=== PATIENT | male | born 1955 | race Hispanic/Latino ===

== ENCOUNTER → 2017-12-23 | Day surgery (SDC) | payer OTHER ==
[~2017-12-23] MED LIST: CARAFATE1 GM PO; CITALOPRAM HBR20 MG PO; FENTANYL CITRATE/PF 100MCG/2 ML INJ ONE; HYOSCYAMINE SULFATE 0.5 MG/ML AMP ONE; LISINOPRIL20 MG PO; METFORMIN HCL500 MG PO; MIDAZOLAM HCL 2 MG/2 ML VIAL ONE; PANTOPRAZOLE SO40 MG PO; PROPOFOL IV EMULSION 10 MG/ML 50 ML VIAL ONE; TRICOR145 MG PO; VITAMIN D PO
[2017-12-23 10:45] VITALS: BP 115/72
--- NOTE | 2017-12-23 11:06 | Operative Report ---
DATE OF PROCEDURE: December 23, 2017 REFERRING PHYSICIAN: Dr. Memo Schwartz PROCEDURE PERFORMED: Colonoscopy and polypectomy. INDICATIONS FOR PROCEDURE: Personal history of colon polyps and surveillance colonoscopy. MEDICATION: Patient was done under MAC. Please see anesthesiologist's note. PROCEDURE: With the patient in the left lateral decubitus position, the flexible fiberoptic Olympus colonoscope was inserted into the rectum with ease and advanced all the way to the cecum. The scope was then withdrawn slowly. Mucosa overlying the cecum, ascending colon, transverse colon, descending colon appeared to be within normal limits. Diverticular disease was noted to involve the distal descending and the sigmoid colon. One polyp was snared and 1 polyp was hot biopsied from the sigmoid colon. There was some patchy minimal nodularity noted in the distal rectum that was biopsied. The scope was then retroflexed into the distal rectum and small internal hemorrhoids were noted, none of which was actively bleeding. The scope was then straightened out. It was subsequently withdrawn. Patient tolerated the procedure well. IMPRESSION 1. Diverticulosis. 2. Sigmoid colon polyps times 2, one snared and one hot biopsied. 3. Patchy nodularity distal rectum, biopsied. 4. Internal hemorrhoids, none actively bleeding. PLAN: Follow up histology. Initiate high-fiber and low-fat diet. Initiate high-fiber supplement. Patient might benefit from a followup colonoscopy in 3 years. Job#: [id number] RI cc:MEMO SCHWARTZ MD
== END | disposition home or self-care (01) ==
LOC: OR 06:30
PROVIDERS: ATTEND Internal Medicine Gastroenterology
DX: Z12.11 Encounter for screening for malignant neoplasm of colon (principal); Z86.010 Personal history of colon polyps; B96.81 Helicobacter pylori [H. pylori] as the cause of diseases classified elsewhere; K29.70 Gastritis, unspecified, without bleeding; Z68.32 Body mass index [BMI] 32.0-32.9, adult; I10 Essential (primary) hypertension; K21.9 Gastro-esophageal reflux disease without esophagitis; Z83.3 Family history of diabetes mellitus; Z82.49 Family history of ischemic heart disease and other diseases of the circulatory system; E11.9 Type 2 diabetes mellitus without complications; Z79.84 Long term (current) use of oral hypoglycemic drugs; K57.30 Diverticulosis of large intestine without perforation or abscess without bleeding; K63.5 Polyp of colon; K64.8 Other hemorrhoids; D12.5 Benign neoplasm of sigmoid colon
CPT/HCPCS: 45385; J1980; J2250; 45378; 45380; 45384

== ENCOUNTER → 2019-07-31 | Outpatient (CLI) | payer OTHER ==
[~2019-07-31] MED LIST changes: -FENTANYL CITRATE/PF 100MCG/2 ML INJ ONE; -HYOSCYAMINE SULFATE 0.5 MG/ML AMP ONE; -MIDAZOLAM HCL 2 MG/2 ML VIAL ONE; -PROPOFOL IV EMULSION 10 MG/ML 50 ML VIAL ONE
== END ==
LOC: RAD 07:25
PROVIDERS: ATTEND Family Medicine
DX: Z01.818 Encounter for other preprocedural examination (principal); H25.89 Other age-related cataract
CPT/HCPCS: 93005

== ENCOUNTER → 2019-08-14 | Day surgery (SDC) | payer OTHER ==
[~2019-08-14] MED LIST changes: +FENTANYL CITRATE/PF 100MCG/2 ML INJ ONE; +MIDAZOLAM HCL 2 MG/2 ML VIAL ONE; +OR PHACO EYE KIT ONE; +PREOP PHACO EYE KIT ONE
--- OUTSIDE RECORDS SUMMARY | 2019-08-14 10:55 | XMS REPORT | Summary of Care ---
Author Author [facility] Address Unknown Phone Unavailable Encounter Encntr_jorge([facility]) [id number] Date(s): 04/17/15 - 05/16/15 [facility] [place] Discharge Disposition: Home Attending Physician: Jasson Brown Vital Signs No data available for this section Problem List No data available for this section Allergies, Adverse Reactions, Alerts No data available for this section Medications No data available for this section Results No data available for this section Immunizations No data available for this section Procedures No data available for this section Social History No data available for this section Assessment and Plan No data available for this section
--- OUTSIDE RECORDS SUMMARY | 2019-08-14 10:55 | XMS REPORT | Summary of Care ---
Author Author [facility] Address Unknown Phone Unavailable Encounter Encntr_jorge([facility]) [id number] Date(s): 03/18/15 - 04/16/15 [facility] [place] Discharge Disposition: Home Attending Physician: Jasson Brown [...]
--- OUTSIDE RECORDS SUMMARY | 2019-08-14 10:55 | XMS REPORT | Continuity of Care Document ---
Author Author [place], [facility] [employer] Information [place] Address Unknown Phone Unavailable Care Team Providers Care Instructional Media Services Technician Name Role Phone [employer] Information Exchange Unavailable Un available Problems Problem Status Onset Date Classification Date Reported Comments Source Hyperglycemia (Other abnormal blood chemistry) Resolved 03/30/2013 Problem 08/04/2019 2.16.840.1.322159.4.391.11.37421 Other B-complex deficiencies R esolved 07/07/2012 Problem 08/04/2019 2.16.840.1.880475.4.391.11.36047 Unspecified vitamin D deficiency Resolved 07/07/2012 Problem 08/04/2019 2.16.840.1.260912.4.391.11.52817 Other malaise and fatigue Reso lved 05/31/2012 Problem 08/04/2019 2.16.840.1.438064.4.391.11.2 7055 Acute frontal sinusitis Resolv ed 12/29/2011 Problem 08/04/2019 2.16.840.1.156264.4.391.11.2 7055 ANDREZ (generalized anxiety disorder) Resolved 12/17/2011 Problem 08/04/2019 2.16.840.1.485155.4.391.11.02878 Nasopharyngitis acute Resolved 05/31/2011 Problem 08/04/2019 2.16.840.1.920115.4.391.11.2 7055 Allergic pharyngitis Resolved 02/03/2011 Problem 08/04/2019 2.16.840.1.690895.4.391.11.2 7055 Degenerative arthritis of lumbar spine Resolved 11/04/2010 Problem 08/04/2019 2.16.840.1.494487.4.391.11.94143 Lumbar disc herniation with radiculopathy Resolved 11/04/2010 Problem 08/04/2019 2.16.840.1.103496.4.391.11.91087 Personal history of colonic polyps Resolved 08/12/2010 Problem 08/04/2019 2.16.840.1.356562.4.391.11.40901 Atrophic gastritis Resolved 08/12/2010 Problem 08/04/2019 2.16.840.1.368051.4.391.11.2 7055 Right ear pain Resolved 06/10/2010 Problem 08/04/2019 2.16.840.1.584778.4.391.11.2 7055 Unspecified disorder of lipoid metabolism Resolved 03/10/2010 Problem 08/04/2019 2.16.840.1.976991.4.391.11.96550 Costochondritis Resolved 02/13/2010 Problem 08/04/2019 2.16.840.1.544791.4.391.11.2 7055 Cough Resolved 05/26/2009 Problem 08/04/2019 2.16.840.1.000857.4.391.11.2 7055 Fever and other physiologic disturbances of temperature regulation Resolved 05/26/2009 Problem 08/04/2019 2.16.840.1.039448.4.391.11.76099 Nonspecific abnormal results of liver function study Resolved 03/06/2009 Problem 08/04/2019 2.16.840.1.598406.4.391.11.75904 Bronchitis, acute Resolved 11/27/2008 Problem 08/04/2019 2.16.840.1.613396.4.391.11.2 7055 Acute maxillary sinusitis Reso lved 11/27/2008 Problem 08/04/2019 2.16.840.1.116416.4.391.11.2 7055 Other dyspnea and respiratory abnormalities Resolved 02/26/2008 Problem 08/04/2019 2.16.840.1.430038.4.391.11.81840 Nonspecific abnormal results of other sp ecified function study Resolved 10/05/2007 Problem 08/04/2019 2.16.840.1.277817.4.391.11.36663 Diarrhea Resolved 10/05/2007 Problem 08/04/2019 2.16.840.1.339513.4.391.11.2 7055 Heartburn Resolved 10/05/2007 Problem 08/04/2019 2.16.840.1.704133.4.391.11.2 7055 Abdominal pain, right upper quadrant Resolved 08/07/2007 Problem 08/04/2019 2.16.840.1.213333.4.391.11.11678 Acute gastritis Resolved 08/07/2007 Problem 08/04/2019 2.16.840.1.031105.4.391.11.2 7055 Lumbar pain Resolved 08/07/2007 Problem 08/04/2019 2.16.840.1.721869.4.391.11.2 7055 Reflux esophagitis Resolved 08/07/2007 Problem 08/04/2019 2.16.840.1.519225.4.391.11.2 7055 Gastro-esophageal reflux Resol kimber 01/12/2007 Problem 08/04/2019 2.16.840.1.618679.4.391.11.2 7055 Annual Physical (Routine general medical examination at health care facility) Resolved 01/12/2007 Problem 08/04/2019 2.16.840.1.911010.4.391.11.02756 Cholesterolosis of gallbladder Active Problem 11/2019 2.16.840.1.660807.4.391.11.2 7055 Atrophic gastritis Active Problem 08/04/2019 2.16.840.1.323433.4.391.11.2 7055 Mixed hyperlipidemia Active Problem 08/04/2019 2.16.840.1.651358.4.391.11.2 7055 Essential hypertension, benign Active Problem 11/2019 2.16.840.1.837105.4.391.11.2 7055 Malaise and fatigue Active Problem 08/04/2019 2.16.840.1.445195.4.391.11.2 7055 Disorder of lipid metabolism A ctive Problem 11/2019 2.16.840.1.030483.4.391.11.2 7055 Lumbosacral spondylosis Active Problem 08/04/2019 2.16.840.1.813971.4.391.11.2 7055 B12 deficiency Active Problem 08/04/2019 2.16.840.1.301107.4.391.11.2 7055 Mahmood's esophagus Active Problem 08/04/2019 2.16.840.1.875643.4.391.11.2 7055 History of colonic polyps Acti ve Problem 11/2019 2.16.840.1.746233.4.391.11.2 7055 Esophageal reflux Active Problem 08/04/2019 2.16.840.1.519097.4.391.11.2 7055 Generalized anxiety disorder A ctive Problem 11/2019 2.16.840.1.509756.4.391.11.2 7055 Low back pain Active Problem 08/04/2019 2.16.840.1.371163.4.391.11.35149 Vitamin D deficiency Active Problem 08/04/2019 2.16.840.1.897692.4.391.11.2 7055 Type 2 diabetes mellitus Active Problem 08/04/2019 2.16.840.1.225387.4.391.11.2 7055 Vitamin D deficiency Active Problem 08/04/2019 2.16.840.1.754936.4.391.11.2 7055 Essential hypertension Active Problem 08/04/2019 2.16.840.1.171116.4.391.11.2 7055 Hypertension Active Problem 08/04/2019 2.16.840.1.229141.4.391.11.98509 Type 2 diabetes mellitus Active Diagnosis 04/18/2019 2.16.840.1.141883.4.391.11.2 7055 Mixed hyperlipidemia Active Problem 08/04/2019 2.16.840.1.332998.4.391.11.2 7055 Lumbago with sciatica, left side Active Problem 11/2019 2.16.840.1.881005.4.391.11.2 7055 Acquired absence of kidney Act felicia Problem 11/2019 2.16.840.1.599170.4.391.11.2 7055 Benign non-nodular prostatic hyperplasia without lower urinary tract symptoms Active Problem 08/04/2019 2.16.840.1.502748.4.391.11.77818 Other chronic pain Active Problem 08/04/2019 2.16.840.1.048839.4.391.11.2 7055 Benign non-nodular prostatic hyperplasia with lower urinary tract symptoms Active Problem 08/04/2019 2.16.840.1.936717.4.391.11.89023 Multilevel foraminal stenosis Active Diagnosis 1 2.16.840.1.114047.4.391.11.2 7055 Type 2 diabetes mellitus without complic ation, without long-term current use of insulin Active Problem 08/04/2019 2.16.840.1.668334.4.391.11.09136 Acute non-recurrent frontal sinusitis Active Diagnosis 05/02/2019 2.16.840.1.578108.4.391.11.09961 Essential hypertension Active Diagnosis 10/16/2016 2.16.840.1.240879.4.391.11.2 7055 Obesity (BMI 30-39.9) Active Problem 04/18/2019 2.16.840.1.274610.4.391.11.2 7055 Anxiety Active Problem 08/04/2019 2.16.840.1.835767.4.391.11.48201 Costochondritis, acute Active Diagnosis 06/18/2017 2.16.840.1.749428.4.391.11.2 7055 Cough Active Diagnosis 05/02/2019 2.16.840.1.374386.4.391.11.18010 Influenza-like symptoms Active Diagnosis 05/21/2017 2.16.840.1.356381.4.391.11.2 7055 Neurasthenia Active Problem 08/04/2019 2.16.840.1.453154.4.391.11.97717 Acute non-recurrent maxillary sinusitis Active Diagnosis 12/24/2017 2.16.840.1.725919.4.391.11.86116 Nasopharyngitis Active Diagnosis 10/02/2015 2.16.840.1.304293.4.391.11.2 7055 Blunt trauma of rib Active Diagnosis 09/09/2015 2.16.840.1.907734.4.391.11.2 7055 Low back pain Active Diagnosis 02/10/2016 2.16.840.1.906800.4.391.11.2 7055 Radiculopathy of lumbosacral region Active Diagnosis 1 2.16.840.1.238946.4.391.11.2 7055 Sinusitis, acute maxillary Act felicia Diagnosis 0 12/25/2015 2.16.840.1.350386.4.391.11.2 7055 Left-sided low back pain with sciatica Active Diagnosis 01/03/2016 2.16.840.1.602075.4.391.11.85027 Obesity Active Diagnosis 01/03/2016 2.16.840.1.925297.4.391.11.78423 Benign essential hypertension Active Diagnosis 1 04/01/2015 2.16.840.1.103942.4.391.11.2 7055 ANDREZ (generalized anxiety disorder) Active Diagnosis 1 04/01/2015 2.16.840.1.119543.4.391.11.2 7055 History of prostate cancer Act felicia Problem 11/2019 2.16.840.1.391028.4.391.11.2 7055 Mixed urge and stress incontinence Active Problem 11/2019 2.16.840.1.981823.4.391.11.2 7055 Obesity (BMI 30.0-34.9) Active Problem 08/04/2019 2.16.840.1.765926.4.391.11.2 7055 Other age-related cataract of both eyes Active Diagnosis 07/28/2019 2.16.840.1.764398.4.391.11.90014 Pre-op evaluation Active Diagnosis 07/28/2019 2.16.840.1.809103.4.391.11.2 7055 LT HAND Active [facility] LEFT WRIST Active [facility] [place] LT WRIST Active [facility] [place] Medications Medication Details Route Status Patient Instructions Ordering Provider Order Date Source Guaifenesin-Codeine 5 -10 mls Orally Active 100-10 MG/5ML Orally every 4 -6 hrs [facility] 05/01/2019 2.16.840.1.538676.4 .391.11.39031 Ditropan XL 1 tablet Orally Active 5 MG Orally Once a day [facility] 03/27/2019 2.16.840.1.708172.4.391.11.74012 Fenofibrate 1 tablet with food Orally Active 160 MG Orally Once a day [facility] 09/26/2018 2.16.840.1.170679.4.391.11.85749 Vitamin D (Ergocalciferol) 1 c apsule Orally Active 75726 UNIT Orally twice a week [facility] 07/18/2018 2.16.840.1.427042.4 .391.11.97245 Vitamin D2 1 capsule by mouth once a week by mouth Active 50,000 by mouth two times a week [facility] 04/20/2018 2.16.840.1.720099.4 .391.11.54476 Vitamin D (Ergocalciferol) 1 c apsule Orally Active 23578 UNIT Orally twice a week [facility] 01/23/2018 2.16.840.1.682393.4 .391.11.43354 MetFORMIN HCl ER 1 tablet with food Orally Active 500 mg Orally twice a day (bid) [facility] 01/20/2018 2.16.840.1.981227.4.391.11.99809 Vitamin D (Ergocalciferol) 1 c apsule Orally Active 78615 UNIT Orally once a week [facility] 10/21/2017 2.16.840.1.757780.4 .391.11.03747 Cefdinir 1 capsule Orally Active 300 MG Orally every 12 hrs [facility] 10/21/2017 2.16.840.1.297054.4.391.11.55839 Tamiflu 1 capsule Orally Active 75 mg Orally Twice a da y [facility] 05/20/2017 2.16.840.1.139919.4.391.11.88216 Meloxicam 1 tablet Orally Active 7.5 MG Orally Once a da y [facility] 04/22/2017 2.16.840.1.908940.4.391.11.42223 Vitamin D2 1 Capsule by mouth once a week by mouth Active 50,000 by mouth once a week [facility] 04/14/2017 2.16.840.1.963056.4 .391.11.65663 Meloxicam 1 tablet Orally Active 15 MG Orally once a day [facility] 01/14/2017 2.16.840.1.255868.4.391.11.24518 Astepro 1-2 sprays in each nos tril Nasally Active 0.15 % Nasally Twice a day [facility] 10/15/2016 2.16.840.1.740409.4.391.11.81741 Cefdinir 2 capsules Orally Active 300 MG Orally daily [facility] 10/15/2016 2.16.840.1.876888.4.391.11.62085 Astepro 1-2 sprays in each nos tril Nasally Active 0.15 % Nasally Twice a day [facility] 10/15/2016 2.16.840.1.177332.4.391.11.56393 Fenofibrate 1 tablet with a me al Orally Active 160 MG Orally Once a day [facility] 07/16/2016 2.16.840.1.115231.4.391.11.29274 Doxazosin Mesylate 1 tablet Orally Active 1 MG Orally Once a day [facility] 07/16/2016 2.16.840.1.730147.4.391.11.06976 Hydrochlorothiazide 1/2 to 1 t ablet Orally Active 25 MG Orally qam [facility] 01/07/2016 2.16.840.1.222024.4.391.11.25190 Adult Blood Pressure Cuff Lg a s directed --- Active - -- check daily [facility] 01/07/2016 2.16.840.1.319441.4.391.11.15527 MetFORMIN HCl ER 2 tablets wit h food Orally Active 500 MG Orally twice a day (bid) [facility] 01/07/2016 2.16.840.1.570875.4.391.11.78591 Potassium Chloride ER 1 tablet with food Orally Active 10 MEQ Orally Once a day [facility] 01/07/2016 2.16.840.1.361094.4.391.11.75440 Cefdinir 2 capsules Orally Active 300 MG Orally daily [facility] 12/22/2015 2.16.840.1.586816.4.391.11.57232 Guaifenesin-Codeine 5-10 mls Orally Active 100-10 MG/5ML Orally every 6 hrs [facility] 12/22/2015 2.16.840.1.738973.4 .391.11.69764 MetFORMIN HCl ER (MOD) 2 table ts Orally No Longer Active 1000 mg Orally twice a day with meals [facility] 10/10/2015 2.16.840.1.135898.4 .391.11.97192 Lisinopril 1 tablet Orally Active 40 mg Orally Once a day [facility] 10/10/2015 2.16.840.1.383259.4.391.11.59324 Tramadol HCl 1 tablet as needed Orally Active 50 mg Orally qd- bid [facility] 10/07/2015 2.16.840.1.965034.4.391.11.44261 Meloxicam 1 tablet Orally Active 15 MG Orally Once a day [facility] 09/04/2015 2.16.840.1.858527.4.391.11.78654 Tramadol HCl 1 tablet Orally Active 50 mg Orally three time s a day (tid) as needed (prn) pain [facility] 09/04/2015 2.16.840.1.885648.4 .391.11.38058 Azithromycin 2 tablets on the first day, then 1 tablet daily for 4 days Orally Active 250 MG Orally Once a day [facility] 07/25/2015 2.16.840.1.075908.4.391.11.77082 Guaifenesin-Codeine 5 ml Orally Active 100-10 MG/5ML Orally ev kristofer 6 hrs prn [facility] 07/25/2015 2.16.840.1.180947.4.391.11.22324 Codeine-Guaifenesin 5 ml as ne eded Orally Inactive 10-300 MG/5ML Orally every 6 hrs [facility] 07/25/2015 2.16.840.1.234129.4 .391.11.97514 Meloxicam 1 tablet Orally Active 7.5 MG Orally twice a d ay (bid) [facility] 07/09/2015 2.16.840.1.912323.4.391.11.67819 Tramadol HCl 1 tablet as needed Orally Active 50 mg Orally daily [facility] 06/29/2015 2.16.840.1.524533.4.391.11.44821 Dicyclomine HCl 1 tablet Orally Active 20 mg Orally prn [facility] 06/27/2015 2.16.840.1.121752.4.391.11.95736 Vitamin D (Ergocalciferol) 1 c apsule Orally Active 62914 UNIT Orally once per week [facility] 05/07/2015 2.16.840.1.665579.4 .391.11.33713 Cyclobenzaprine HCl 1/2 to 1 t ablet by mouth Active 10 mg by mouth twice a day (bid) [facility] 11/18/2014 2.16.840.1.142638.4 .391.11.44068 Niacin Flush Free 1 capsule Orally Active 500 mg Orally every night [facility] 07/15/2014 2.16.840.1.543304.4.391.11.43297 ProAir HFA 2 puffs as needed by mouth Active 108 (90 Base) MCG/ACT by mouth three times a day (tid) as needed (prn) [facility] 03/04/2014 2.16.840.1.110016.4.391.11.59971 Tricor 1 tablet by mouth Active 145 MG by mouth daily [facility] 2.16.840.1.039318.4.391.11.71612 Pantoprazole Sodium 1 tablet by mouth Active 40 mg by mouth bid [facility] 2.16.840.1.206859.4.391.11.85626 Vitamin D (Ergocalciferol) 1 c apsule Orally Active 77094 UNIT Orally once per week [place] [address].16840.1.109118.4.391.11.2 7055 Lisinopril 1 tablet Orally Active 40 mg Orally Once a day [place] [address].16840.1.141748.4.391.11.90173 Doxazosin Mesylate 1 tablet Orally Active 1 MG Orally Once a day [place] [address].16840.1.536539.4.391.11.46283 Citalopram Hydrobromide 1 tabl et by mouth Active 10 mg by mouth daily [place] [address].16840.1.571888.4.391.11.27168 Fenofibrate 1 tablet with a me al Orally Active 160 MG Orally Once a day [place] [address].168[address].1.232751.4.391.11.89179 MetFORMIN HCl ER 1 tablet with food Orally Active 500 mg Orally twice a day (bid) [place] [address].840.1.218455.4.391.11.85693 Tramadol HCl 1 tablet as needed Orally Active 50 mg Orally qd- bid [facility] 2.840.1.925166.4.391.11.10380 Citalopram Hydrobromide 1 tabl et by mouth Active 10 mg by mouth daily [place] [address].16840.1.766319.4.391.11.40828 Tramadol HCl 1 tablet as needed Orally Active 50 mg Orally qd- bid [place] [address].16840.1.740892.4.391.11.06994 Pantoprazole Sodium 1 tablet by mouth Active 40 mg by mouth daily [place] [address].16840.1.446090.4.391.11.22721 Fenofibrate 1 tablet with a me al Orally Active 160 MG Orally Once a day [place] [address].16840.1.204431.4.391.11.84548 Doxazosin Mesylate 1 tablet Orally Active 1 MG Orally Once a day [address].1.957182.4.391.11.60586 MetFORMIN HCl ER 2 tablets wit h food Orally Active 500 MG Orally twice a day (bid) [facility] 2.840.1.883329.4.391.11.21260 Tricor 1 tablet by mouth Active 145 MG by mouth daily [facility] 2.840.1.716399.4.391.11.72550 Lisinopril 1 tablet Orally Active 40 mg Orally Once a day [facility] 2.840.1.104832.4.391.11.59653 Meloxicam 1 tablet Orally Active 15 MG Orally once a day [facility] 2.840.1.584663.4.391.11.11231 Vitamin D (Ergocalciferol) 1 c apsule Orally Active 79591 UNIT Orally once per week [facility] 2.840.1.073365.4.391.11.2 7055 Levaquin 1 tablet Orally Active 500 mg Orally every day [facility] 2.840.1.181804.4.391.11.10713 Guaifenesin-Codeine 5-10 mls Orally Active 100-10 MG/5ML Orally every 6 hrs [facility] 2.840.1.242102.4.391.11.2 7055 Dicyclomine HCl 1 tablet Orally Active 20 mg Orally four times a day (qid) [facility] 2.840.1.136819.4.391.11.46660 Lisinopril 1 tablet by mouth No Longer Active 20 mg by mout h daily [facility] 2.840.1.435499.4.391.11.40165 MetFORMIN HCl ER (MOD) 3 table ts with evening meal Orally No Longer Active 500 mg Orally Once a day [facility] 2.840.1.631111.4.391.11.2 7055 Sucralfate 1 tablet on an empt y stomach Orally Active 1 GM Orally Twice a day [facility] 2.840.1.314412.4.391.11.91890 MetFORMIN HCl ER (MOD) 3 table ts with evening meal Orally Active 500 mg Orally Once a day [facility] 2.16.840.1.742537.4.391.11.2 7055 Dicyclomine HCl 1 tablet Orally Active 20 mg Orally four times a day (qid) [facility] 2.16.840.1.450631.4.391.11.25893 Allergies, Adverse Reactions, Alerts Substance Category Reaction Severity Reaction type Status Date Reported Comments Source N.K.D.A. Adverse Reaction Info Not Available Adverse Reaction 05/01/2019 2.16.840.1.872202.4.391.11.2 7055 Immunizations Immunization Date Given Site Status Last Updated Comments Source FLUVIRIN - Influenza (split) 1 completed 2.16.840.1.702780.4.391.11.2 7055 Ancef 500mg (Cefazolin) 2015 completed 2.16.840.1.755020.4.391.11.2 7055 Inj. Dexamethasone Sod Phos 1mg 12/22/2015 completed 2.16.840.1.844159.4.391.11.2 7055 Ceftriaxone 500 mg 07/25/2015 completed 2.16.840.1.695136.4.391.11.2 7055 Inj. Dexamethasone Sod Phos 1mg 07/25/2015 completed 2.16.840.1.418227.4.391.11.2 7055 Results No Data Provided for This Section Pathology Reports No Data Provided for This Section Diagnostic Reports No Data Provided for This Section Consultation Notes No Data Provided for This Section Discharge Summaries No Data Provided for This Section History and Physicals No Data Provided for This Section Vital Signs Vital Sign Value Date Comments Source Weight 206 05/01/2019 2.16.840.1.210151.4.391.11.2 7055 Height 66 0 05/01/2019 2.16.840.1.494100.4.391.11.2 7055 Temperature Oral (F) 98.5 F 05/01/2019 2.16.840.1.415579.4.391.11.59180 Heart Rate 84 05/01/2019 2.16.840.1.483067.4.391.11.2 7055 Weight 208 03/27/2019 2.16.840.1.928065.4.391.11.2 7055 Height 66 1 2.16.840.1.949283.4.391.11.2 7055 Temperature Oral (F) 97.6 F 03/27/2019 2.16.840.1.246291.4.391.11.60542 Heart Rate 85 03/27/2019 2.16.840.1.111189.4.391.11.2 7055 Weight 201 09/22/2018 2.16.840.1.516144.4.391.11.2 7055 Height 66 0 09/22/2018 2.16.840.1.114871.4.391.11.2 7055 Temperature Oral (F) 98.2 F 09/22/2018 2.16.840.1.736268.4.391.11.73723 Heart Rate 73 09/22/2018 2.16.840.1.689634.4.391.11.2 7055 Weight 209 04/19/2018 2.16.840.1.322029.4.391.11.2 7055 Height 66 0 04/19/2018 2.16.840.1.169021.4.391.11.2 7055 Temperature Oral (F) 98.1 F 04/19/2018 2.16.840.1.576203.4.391.11.28935 Heart Rate 71 04/19/2018 2.16.840.1.139004.4.391.11.2 7055 Weight 213 01/20/2018 2.16.840.1.350575.4.391.11.2 7055 Height 66 1 2.16.840.1.801617.4.391.11.2 7055 Temperature Oral (F) 97.7 F 01/20/2018 2.16.840.1.145754.4.391.11.44251 Heart Rate 87 01/20/2018 2.16.840.1.847551.4.391.11.2 7055 Weight 209 10/21/2017 2.16.840.1.377534.4.391.11.2 7055 Height 66 0 10/21/2017 2.16.840.1.777700.4.391.11.2 7055 Temperature Oral (F) 98.5 F 10/21/2017 2.16.840.1.996882.4.391.11.06621 Heart Rate 100 10/21/2017 2.16.840.1.080316.4.391.11.2 7055 Weight 212 07/22/2017 2.16.840.1.446220.4.391.11.2 7055 Height 66 0 07/22/2017 2.16.840.1.044274.4.391.11.2 7055 Temperature Oral (F) 99.0 F 07/22/2017 2.16.840.1.443962.4.391.11.34310 Heart Rate 87 07/22/2017 2.16.840.1.787734.4.391.11.2 7055 Weight 212 05/20/2017 2.16.840.1.962457.4.391.11.2 7055 Height 66 0 05/20/2017 2.16.840.1.116094.4.391.11.2 7055 Temperature Oral (F) 97.2 F 05/20/2017 2.16.840.1.501986.4.391.11.06114 Heart Rate 65 05/20/2017 2.16.840.1.128545.4.391.11.2 7055 Weight 216 04/22/2017 2.16.840.1.545274.4.391.11.2 7055 Height 66 0 04/22/2017 2.16.840.1.463535.4.391.11.2 7055 Temperature Oral (F) 98.6 F 04/22/2017 2.16.840.1.265701.4.391.11.33365 Heart Rate 69 04/22/2017 2.16.840.1.759182.4.391.11.2 7055 Weight 210 01/14/2017 2.16.840.1.465919.4.391.11.2 7055 Height 66 1 2.16.840.1.327678.4.391.11.2 7055 Temperature Oral (F) 97.0 F 01/14/2017 2.16.840.1.102869.4.391.11.91320 Heart Rate 67 01/14/2017 2.16.840.1.974152.4.391.11.2 7055 Weight 212 10/15/2016 2.16.840.1.641932.4.391.11.2 7055 Height 66 0 10/15/2016 2.16.840.1.239453.4.391.11.2 7055 Temperature Oral (F) 97.4 F 10/15/2016 2.16.840.1.262443.4.391.11.19219 Heart Rate 68 10/15/2016 2.16.840.1.614861.4.391.11.2 7055 Weight 212 07/16/2016 2.16.840.1.968727.4.391.11.2 7055 Height 66 0 07/16/2016 2.16.840.1.438976.4.391.11.2 7055 Temperature Oral (F) 98.1 F 07/16/2016 2.16.840.1.526595.4.391.11.56168 Heart Rate 69 07/16/2016 2.16.840.1.253053.4.391.11.2 7055 Weight 215 04/14/2016 2.16.840.1.401533.4.391.11.2 7055 Height 66 0 04/14/2016 2.16.840.1.585870.4.391.11.2 7055 Temperature Oral (F) 98.2 F 04/14/2016 2.16.840.1.828567.4.391.11.95834 Heart Rate 68 04/14/2016 2.16.840.1.470592.4.391.11.2 7055 Weight 214 01/07/2016 2.16.840.1.508747.4.391.11.2 7055 Height 66 1 2.16.840.1.867260.4.391.11.2 7055 Temperature Oral (F) 98.7 F 01/07/2016 2.16.840.1.112434.4.391.11.94087 Heart Rate 88 01/07/2016 2.16.840.1.580079.4.391.11.2 7055 Weight 218 12/22/2015 2.16.840.1.977177.4.391.11.2 7055 Height 66 0 12/22/2015 2.16.840.1.821208.4.391.11.2 7055 Temperature Oral (F) 98.8 F 12/22/2015 2.16.840.1.875354.4.391.11.96809 Heart Rate 76 12/22/2015 2.16.840.1.217736.4.391.11.2 7055 Weight 217 11/14/2015 2.16.840.1.149630.4.391.11.2 7055 Height 66 0 11/14/2015 2.16.840.1.640194.4.391.11.2 7055 Temperature Oral (F) 98.9 F 11/14/2015 2.16.840.1.130341.4.391.11.20210 Heart Rate 77 11/14/2015 2.16.840.1.004622.4.391.11.2 7055 Weight 217 10/10/2015 2.16.840.1.497434.4.391.11.2 7055 Height 66 0 10/10/2015 2.16.840.1.601714.4.391.11.2 7055 Temperature Oral (F) 98.3 F 10/10/2015 2.16.840.1.863804.4.391.11.64227 Heart Rate 58 10/10/2015 2.16.840.1.079160.4.391.11.2 7055 Weight 217.8 09/04/2015 2.16.840.1.320496.4.391.11.2 7055 Height 66 0 09/04/2015 2.16.840.1.449114.4.391.11.2 7055 Temperature Oral (F) 97.8 F 09/04/2015 2.16.840.1.486444.4.391.11.46869 Heart Rate 71 09/04/2015 2.16.840.1.779026.4.391.11.2 7055 Weight 212 07/25/2015 2.16.840.1.665819.4.391.11.2 7055 Height 66 0 07/25/2015 2.16.840.1.087956.4.391.11.2 7055 Temperature Oral (F) 99.4 F 07/25/2015 2.16.840.1.379470.4.391.11.41930 Heart Rate 83 07/25/2015 2.16.840.1.750010.4.391.11.2 7055 Encounters Location Location Details Encounter Type Encounter Number Reason For Visit Attending Provider ADM Date DC Date Status Source [facility] [place] [facility] [id number] Jasson Brown 03/18/2015 04/17/2015 [facility] [id number] Jasson Brown 04/17/2015 05/17/2015 [facility] Bennett Schwartz MD [facility] Sore Throat and cough [id number] 07/25/2015 07/25/2015 2.16.840.1.289873.4.391.11.00479 [facility] S[facility] Thro[facility] and cough [id number] 07/25/2015 07/25/2015 2.16.840.1.967098.4.391.11.86996 Lonny Schwartz MD [facility] Sore Throat and cough [id number] 07/25/2015 07/25/2015 2.16.840.1.754263.4.391.11.62225 Lonny Schwartz MD [facility] Sore Throat and cough [id number] 07/25/2015 07/25/2015 2.16.840.1.772189.4.391.11.37654 Lonny Schwartz MD [facility] Sore Throat and cough [id number] 07/25/2015 07/25/2015 2.16.840.1.608768.4.391.11.17635 Lonny Schwartz MD [facility] Sore Throat and cough [id number] 07/25/2015 07/25/2015 2.16.840.1.306992.4.391.11.06335 Lonny Schwartz MD [facility] Sore Throat and cough [id number] 07/25/2015 07/25/2015 2.16.840.1.738968.4.391.11.41580 Lonny Schwartz MD [facility] Sore Throat and cough [id number] 07/25/2015 07/25/2015 2.16.840.1.584048.4.391.11.05004 Lonny Schwartz MD [facility] Sore Throat and cough [id number] 07/25/2015 07/25/2015 2.16.840.1.689951.4.391.11.04299 Lonny Schwartz MD [facility] did not receive Cough Med RX [id number] 07/25/2015 07/25/2015 2.16.840.1.673975.4.391.11.2 7055 Lonny Schwartz MD [facility] did not receive Cough Med RX [id number] 07/25/2015 07/25/2015 2.16.840.1.810922.4.391.11.2 Alistair Schwartz MD [facility] did not receive Cough Med RX [id number] 07/25/2015 07/25/2015 2.16.840.1.097737.4.391.11.2 70Jacky Schwartz MD [facility] did not receive Cough Med RX [id number] 07/25/2015 07/25/2015 2.16.840.1.825949.4.391.11.2 70Jacky Schwartz MD [facility] did not receive Cough Med RX [id number] 07/25/2015 07/25/2015 2.16.840.1.548183.4.391.11.2 Alistair Schwartz MD [facility] did not receive Cough Med RX [id number] 07/25/2015 07/25/2015 2.16.840.1.123819.4.391.11.2 Alistair Schwartz MD [facility] did not receive Cough Med RX [id number] 07/25/2015 07/25/2015 2.16.840.1.528675.4.391.11.2 Alistair Schwartz MD [facility] did not receive Cough Med RX [id number] 07/25/2015 07/25/2015 2.16.840.1.332457.4.391.11.2 Alistair Schwartz MD [facility] did not receive Cough Med RX [id number] 07/25/2015 07/25/2015 2.16.840.1.107958.4.391.11.2 7055 Lonny Schwartz MD [facility] did not receive Cough Med RX [id number] 07/25/2015 07/25/2015 2.16.840.1.189627.4.391.11.2 7055 Lonny Schwartz MD [facility] did not receive Cough Med RX [id number] 07/25/2015 07/25/2015 2.16.840.1.875650.4.391.11.2 7055 Lonny Schwartz MD [facility] sprained wrist??? [id number] 09/04/2015 09/04/2015 2.16.840.1.931959.4.391.11.56339 Lonny Schwartz [facility] sprained wrist??? [id number] 09/04/2015 09/04/2015 2.16.840.1.617824.4.391.11.16737 Lonny Schwartz MD [facility] sprained wrist??? [id number] 09/04/2015 09/04/2015 2.16.840.1.393557.4.391.11.91462 Lonny Schwartz MD [facility] sprained wrist??? [id number] 09/04/2015 09/04/2015 2.16.840.1.483179.4.391.11.66733 Lonny Schwartz MD [facility] sprained wrist??? [id number] 09/04/2015 09/04/2015 2.16.840.1.764897.4.391.11.06666 Lonny Schwartz MD [facility] sprained wrist??? [id number] 09/04/2015 09/04/2015 2.16.840.1.315674.4.391.11.64197 Lonny Schwartz MD [facility] sprained wrist??? [id number] 09/04/2015 09/04/2015 2.16.840.1.872162.4.391.11.41709 Lonny Schwartz MD [facility] sprained wrist??? [id number] 09/04/2015 09/04/2015 2.16.840.1.763324.4.391.11.02269 Lonny Schwartz MD [facility] sprained wrist??? [id number] 09/04/2015 09/04/2015 2.16.840.1.085186.4.391.11.70863 Lonny Schwartz MD [facility] sprained wrist??? [id number] 09/04/2015 09/04/2015 2.16.840.1.389055.4.391.11.57535 Lonny Schwartz MD [facility] Other [id number] 10/09/19 16 10/09/2015 2.16.840.1.057594.4.391.11.87002 Lonny Schwartz MD [facility] Other [id number] 10/09/19 16 10/09/2015 2.16.840.1.672258.4.391.11.60690 Lonny Schwartz MD [facility] Other [id number] 10/09/19 16 10/09/2015 2.16.840.1.693660.4.391.11.00367 Lonny Schwartz MD [facility] Other [id number] 10/09/19 16 10/09/2015 2.16.840.1.121893.4.391.11.23227 Lonny Schwartz MD [facility] Other [id number] 10/09/19 16 10/09/2015 2.16.840.1.035084.4.391.11.73142 Lonny Schwartz MD [facility] Other [id number] 10/09/19 16 10/09/2015 2.16.840.1.094319.4.391.11.00666 Lonny Schwartz MD [facility] Other [id number] 10/09/19 16 10/09/2015 2.16.840.1.161242.4.391.11.49680 Lonny Schwartz MD [facility] Other [id number] 10/09/19 16 10/09/2015 2.16.840.1.705923.4.391.11.62002 Lonny Schwartz MD [facility] follow up labs [id number] 10/10/19 16 10/10/2015 2.16.840.1.398352.4.391.11.81800 Lonny Schwartz MD [facility] follow up labs [id number] 10/10/19 16 10/10/2015 2.16.840.1.701477.4.391.11.80748 Lonny Schwartz MD [facility] follow up labs [id number] 10/10/19 16 10/10/2015 2.16.840.1.481276.4.391.11.24127 Lonny Schwartz MD [facility] follow up labs [id number] 10/10/19 16 10/10/2015 2.16.840.1.250087.4.391.11.98138 Lonny Schwartz MD [facility] follow up labs [id number] 10/10/19 16 10/10/2015 2.16.840.1.644746.4.391.11.55370 Lonny Schwartz MD [facility] Other [id number] 10/10/19 16 10/10/2015 2.16.840.1.662603.4.391.11.58849 Lonny Schwartz MD [facility] Other [id number] 10/10/19 16 10/10/2015 2.16.840.1.451302.4.391.11.82681 Lonny Schwartz MD [facility] Other [id number] 10/10/19 16 10/10/2015 2.16.840.1.819844.4.391.11.20817 Lonny Schwartz MD [facility] Other [id number] 10/10/19 16 10/10/2015 2.16.840.1.766688.4.391.11.98014 Lonny Schwartz MD [facility] Other [id number] 10/10/19 16 10/10/2015 2.16.840.1.912438.4.391.11.31825 Lonny Schwartz MD [facility] Other [id number] 10/10/19 16 10/10/2015 2.16.840.1.457952.4.391.11.92761 Lonny Schwartz MD [facility] Other [id number] 10/10/19 16 10/10/2015 2.16.840.1.325510.4.391.11.14147 Lonny Schwartz MD [facility] follow up MRI [id number] 11/14/19 16 11/14/2015 2.16.840.1.766151.4.391.11.47700 Lonny Schwartz MD [facility] follow up MRI [id number] 11/14/19 16 11/14/2015 2.16.840.1.915846.4.391.11.69427 Lonny Schwartz MD [facility] follow up MRI [id number] 11/14/19 16 11/14/2015 2.16.840.1.200143.4.391.11.18296 Lonny Schwartz MD [facility] follow up MRI [id number] 11/14/19 16 11/14/2015 2.16.840.1.426546.4.391.11.35753 Lonny Schwartz MD [facility] [id number] 12/22/19 16 12/22/2015 2.16.840.1.555349.4.391.11.98091 Lonny Schwartz MD [facility] Cold [id number] 12/22/19 16 12/22/2015 2.16.840.1.808933.4.391.11.93329 Lonny Schwartz MD [facility] Cold [id number] 12/22/19 16 12/22/2015 2.16.840.1.917359.4.391.11.32958 Lonny Schwartz MD [facility] Cold [id number] 12/22/19 16 12/22/2015 2.16.840.1.368118.4.391.11.92315 Lonny Schwartz MD [facility] Cold [id number] 12/22/19 16 12/22/2015 2.16.840.1.300107.4.391.11.71807 Lonny Schwartz MD [facility] Cold [id number] 12/22/19 16 12/22/2015 2.16.840.1.353236.4.391.11.91056 Lonny Schwartz MD [facility] Medication Refil, follow up labs [id number] 01/07/2016 01/07/2016 2.16.840.1.145717.4.391.11.2 7055 Lonny Schwartz MD [facility] Medication Refil, follow up labs [id number] 01/07/2016 01/07/2016 2.16.840.1.459238.4.391.11.2 7055 Lonny Schwartz MD [facility] Medication Refil, follow up labs [id number] 01/07/2016 01/07/2016 2.16.840.1.327873.4.391.11.2 7055 Lonny Schwartz MD [facility] Other [id number] 02/09/20 16 02/09/2016 2.16.840.1.047315.4.391.11.85160 Lonny Schwartz MD [facility] Other [id number] 02/09/20 16 02/09/2016 2.16.840.1.890530.4.391.11.32148 Lonny Schwartz MD [facility] Other [id number] 05/10/19 17 05/10/2016 2.16.840.1.420290.4.391.11.11652 Procedures No Data Provided for This Section Assessment and Plan No Data Provided for This Section Plan of Care No Data Provided for This Section Social History Social History Date Source Social History ElementQualifiersDate Rep orted Supplements . Do you use supplements Yes Omega3 Apr 14, 2016 Tobacco Use: . Are you a: never smoker Apr 14, 2016 Caffeine intake? . Status: Yes, What type: coffee (1 se rving per day) and soda (1 serving per day) Apr 14, 2016 Do you drink alcohol? . Status: Yes, Type: Beer, Frequency Re gular Use, Quantity 12 Apr 14, 2016 04/14/2016 2.16.840.1.361278.4.391.11.49279 No data available for this section 05/17/2015 [facility] Family History Value Date S ource QualifierDescriptionCommentDate Reported Maternal Grandmother Comment not available Jan 07, 2016 Paternal Grandmother Comment not available Jan 07, 2016 Siblings alive 2 brothers diabetes Jan 07, 2016 Maternal Grandfather Comment not available Jan 07, 2016 Children Comment not available Jan 07, 2016 Father alive Comment not available Jan 07, 2016 Paternal Grandfather Comment not available Jan 07, 2016 Mother alive Comment not available Jan 07, 2016 Other: Comment not available Jan 07, 2016 01/31/2016 2.16.840.1.017605.4.391.11.03885 QualifierDescriptionCommentDate Reported Maternal Grandmother Comment not available Jan 07, 2016 Paternal Grandmother Comment not available Jan 07, 2016 Siblings alive 2 brothers diabetes Jan 07, 2016 Maternal Grandfather Comment not available Jan 07, 2016 Children Comment not available Jan 07, 2016 Father alive Comment not available Jan 07, 2016 Paternal Grandfather Comment not available Jan 07, 2016 Mother alive Comment not available Jan 07, 2016 Other: Comment not available Jan 07, 2016 01/08/2016 2.16.840.1.535406.4.391.11.38165 QualifierDescriptionCommentDate Reported Maternal Grandmother Comment not available Dec 22, 2015 Paternal Grandmother Comment not available Dec 22, 2015 Siblings alive 2 brothers diabetes Dec 22, 2015 Maternal Grandfather Comment not available Dec 22, 2015 Children Comment not available Dec 22, 2015 Father alive Comment not available Dec 22, 2015 Paternal Grandfather Comment not available Dec 22, 2015 Mother alive Comment not available Dec 22, 2015 Other: Comment not available Dec 22, 2015 12/25/2015 2.16.840.1.709255.4.391.11.87739 QualifierDescriptionCommentDate Reported Maternal Grandmother Comment not available September 04, 2015 Paternal Grandmother Comment not available September 04, 2015 Siblings alive 2 brothers diabetes September 04, 2015 Maternal Grandfather Comment not available September 04, 2015 Children Comment not available September 04, 2015 Father alive Comment not available September 04, 2015 Paternal Grandfather Comment not available September 04, 2015 Mother alive Comment not available September 04, 2015 Other: Comment not available September 04, 2015 10/02/2015 2.16.840.1.606073.4.391.11.52738 QualifierDescriptionCommentDate Reported Maternal Grandmother Comment not available September 04, 2015 Paternal Grandmother Comment not available September 04, 2015 Siblings alive 2 brothers diabetes September 04, 2015 Maternal Grandfather Comment not available September 04, 2015 Children Comment not available September 04, 2015 Father alive Comment not available September 04, 2015 Paternal Grandfather Comment not available September 04, 2015 Mother alive Comment not available September 04, 2015 Other: Comment not available September 04, 2015 09/09/2015 2.16.840.1.090997.4.391.11.34780 Advance Directives No Data Provided for This Section Functional Status No Data Provided for This Section
--- OUTSIDE RECORDS SUMMARY | 2019-08-14 10:55 | XMS REPORT ---
Author Author Jamal Vasquez Organization [employer] Address Unknown Phone Unavailable Care Team Providers Care Pricing Lead Name Role Phone Kiesha Vasquez Unavailable Allergies, Adverse Reactions, Alerts Substance Reaction Event Type N.K.D.A. Info Not Available Non Drug Allergy Problems Problem Type Condition Code Onset Dates Condition Statu s Problem Nonspecific abnormal results of liver function study 7 94.8 Mar 06, 2009 Active Problem Nonspecific abnormal results of other specified function study 794.9 October 05, 2007 Active Problem Abdominal pain, right upper quadrant 789.01 August 07, 2007 Active Problem Hyperglycemia (Other abnormal blood chemistry) 790.6 Mar 30, 2013 Active Problem Diarrhea 787.91 October 05, 2007 Active Problem Heartburn 787.1 October 05, 2007 Active Problem Cough 786.2 May 26, 2009 Active Problem Other dyspnea and respiratory abnormalities 786.09 Feb 26, 2008 Active Problem Other malaise and fatigue 780.79 May 31, 2012 Active Problem Fever and other physiologic disturbances of temperature regulation 780.6 May 26, 2009 Active Problem 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 Active Assessment Benign non-nodular prostatic hyperplasia with lower urinary tract symptoms N40.1 Active Assessment Lumbago with sciatica, left side M54.42 Active Assessment Mixed hyperlipidemia E78.2 Active Assessment Multilevel foraminal stenosis M48.00 Active Assessment Vitamin D deficiency E55.9 Active Problem Atrophic gastritis 535.10 Active Problem Mixed hyperlipidemia 272.2 Active Problem Essential hypertension, benign 401.1 Active Problem Malaise and fatigue 780.79 Active Problem Disorder of lipid metabolism 272.9 Active Problem Lumbosacral spondylosis 721.3 Acti ve Problem B12 deficiency 266.2 Active Problem Mahmood's esophagus 530.85 Active Problem History of colonic polyps V12.72 Ac tive Problem Esophageal reflux 530.81 Active Problem Generalized anxiety disorder 300.02 Active Problem Degenerative arthritis of lumbar spine 721.3 Au 2010 Active Problem Right ear pain 388.70 June 10, 2010 Active Assessment Type 2 diabetes mellitus E11.9 Act felicia Assessment Hypertension I10 Active Problem Mahmood's esophagus 530.85 August 12, 2010 Active Problem Essential hypertension, benign 401.1 Jan 12 07 Active Problem Allergic pharyngitis 462 Feb 03, 2011 Active Problem ANDREZ (generalized anxiety disorder) 300.02 Nov 272011 Active Problem 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 October 04 008 Active Problem Lumbar disc herniation with radiculopathy 722.10 Nov 04, 2010 Active Problem Gastro-esophageal reflux 530.81 Jan 12, 2007 Act felicia Problem Acute gastritis 535.00 August 07, 2007 Active Problem Lumbar pain 724.2 August 07, 2007 Active Problem Nasopharyngitis acute 460 May 31, 2011 Acti ve Problem Low back pain 724.2 Active Problem Bronchitis, acute 466.0 Nov 27, 2008 Active Problem Vitamin D deficiency 268.9 Active Problem Type 2 diabetes mellitus 250.00 Act felicia Problem Vitamin D deficiency E55.9 Active Problem Essential hypertension 401.9 Activ e Problem Hypertension I10 Active Problem Type 2 diabetes mellitus E11.9 Act felicia Problem Mixed hyperlipidemia E78.2 Active Problem Unspecified disorder of lipoid metabolism 272.9 Mar 10, 2010 Active Problem Lumbago with sciatica, left side M54.42 Active Problem Other B-complex deficiencies 266.2 July 07 13 Active Problem Acquired absence of kidney Z90.5 A ctive Problem Unspecified vitamin D deficiency 268.9 June Active Problem Benign non-nodular prostatic hyperplasia without lower urinary tract symptoms N40.0 Active Problem Mixed hyperlipidemia 272.2 Dec 17, 2011 Active Problem Other chronic pain G89.29 Active Problem Costochondritis 733.6 Feb 13, 2010 Active Problem Personal history of colonic polyps V12.72 July Active Problem Annual Physical (Routine gen eral medical examination at health care facility) V70.0 Jan 12, 2007 Active Problem Acute frontal sinusitis 461.1 Dec 29, 2011 Acti ve Problem Acute maxillary sinusitis 461.0 Nov 27, 2008 A ctive Problem Reflux esophagitis 530.11 August 07, 2007 Active Problem Atrophic gastritis 535.1 August 12, 2010 Active Medications Medication Code System Code Instructions Start Date End Date Status Dosage Tricor [facility] 98181170890 145 MG by mouth daily Active 1 tablet Pantoprazole Sodium [facility] 33721067137 40 mg by mouth bid Active 1 tablet Meloxicam [facility] 38463145768 15 MG Orally once a day Jan 14 017 Inactive 1 tablet Vitamin D (Ergocalciferol) [facility] 21783203278 22940 UNIT Orally onc e per week Active 1 capsule Lisinopril [facility] 86074484952 40 mg Orally Once a day A ctive 1 tablet Doxazosin Mesylate [facility] 05789326260 1 MG Orally Once a day Active 1 tablet Citalopram Hydrobromide [facility] 21843129031 10 mg by mouth daily Active 1 tablet Vitamin D2 [facility] 00904325694 50,000 by mouth once a week Mar 282017 Active 1 Capsule by mouth once a week Fenofibrate [facility] 69152939297 160 MG Orally Once a day Active 1 tablet with a meal Astepro [facility] 95946241751 0.15 % Nasally Twice a day October 15, 2016 Active 1-2 sprays in each nostril MetFORMIN HCl ER [facility] 72849276076 500 MG Orally twice a day (bid) Active 2 tablets with food Tramadol HCl [facility] 26958472720 50 mg Orally qd-bid Act felicia 1 tablet as needed Vital Signs Date/Time: Jan 14, 2017 Weight 210 lbs Height 66 in Temperature 97.0 F Cardiac Monitoring Heart Rate 67 /min BMI 33.89 Index Results No Known Results Summary Purpose [employer] Submission
--- OUTSIDE RECORDS SUMMARY | 2019-08-14 10:56 | XMS REPORT ---
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 Active Problem Essential hypertension, benign 401.1 Active Problem Mixed hyperlipidemia 272.2 Active Problem Esophageal reflux 530.81 Active Problem Generalized anxiety disorder 300.02 Active Problem Mahmood's esophagus 530.85 Active Problem History of colonic polyps V12.72 Ac tive Problem Bronchitis, acute 466.0 Nov 27, 2008 Active Problem Lumbar pain 724.2 August 07, 2007 Active Problem Gastro-esophageal reflux 530.81 Jan 12, 2007 Act felicia Problem Acute gastritis 535.00 August 07, 2007 Active Problem Lumbosacral spondylosis 721.3 Acti ve Problem Atrophic gastritis 535.10 Active Problem Low back pain 724.2 Active Problem Disorder of lipid metabolism 272.9 Active Problem Vitamin D deficiency 268.9 Active Problem B12 deficiency 266.2 Active Problem Malaise and fatigue 780.79 Active Problem Vitamin D deficiency E55.9 Active Problem Acquired absence of kidney Z90.5 A ctive Problem Type 2 diabetes mellitus 250.00 Act felicia Problem Essential hypertension 401.9 Activ e Problem Degenerative arthritis of lumbar spine 721.3 Au 2010 Active Problem Right ear pain 388.70 June 10, 2010 Active Problem Costochondritis 733.6 Feb 13, 2010 Active Problem Nasopharyngitis acute 460 May 31, 2011 Acti ve Problem Mahmood's esophagus 530.85 August 12, 2010 Active Problem Essential hypertension, benign 401.1 Jan 12 07 Active Problem Allergic pharyngitis 462 Feb 03, 2011 Active Problem ANDREZ (generalized anxiety disorder) 300.02 Nov 272011 Active Problem 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 October 04 008 Active Problem Lumbar disc herniation with radiculopathy 722.10 Nov 04, 2010 Active Problem Unspecified vitamin D deficiency 268.9 June Active Problem Other B-complex deficiencies 266.2 July 07 13 Active Problem Unspecified disorder of lipoid metabolism 272.9 Mar 10, 2010 Active Problem Reflux esophagitis 530.11 August 07, 2007 Active Problem Lumbago with sciatica, left side M54.42 Active Problem Mixed hyperlipidemia 272.2 Dec 17, 2011 Active Problem Other chronic pain G89.29 Active Problem Benign non-nodular prostatic hyperplasia without lower urinary tract symptoms N40.0 Active Problem Mixed hyperlipidemia E78.2 Active Problem Hypertension I10 Active Problem Mixed urge and stress incontinence N39.46 Active Problem History of prostate cancer Z85.46 A ctive Problem Obesity (BMI 30.0-34.9) E66.9 Acti ve Problem Annual Physical (Routine gen eral medical examination at health care facility) V70.0 Jan 12, 2007 Active Problem Benign non-nodular prostatic hyperplasia with lower urinary tract symptoms N40.1 Active Problem Personal history of colonic polyps V12.72 July Active Problem Anxiety F41.9 Active Problem Acute maxillary sinusitis 461.0 Nov 27, 2008 A ctive Problem 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 Active Problem Acute frontal sinusitis 461.1 Dec 29, 2011 Acti ve Problem Type 2 diabetes mellitus wit hout complication, without long-term current use of insulin E11.9 Active Problem Atrophic gastritis 535.1 August 12, 2010 Active Problem Diarrhea 787.91 October 05, 2007 Active Problem Heartburn 787.1 October 05, 2007 Active Problem Hyperglycemia (Other abnormal blood chemistry) 790.6 Mar 30, 2013 Active Problem Abdominal pain, right upper quadrant 789.01 August 07, 2007 Active Problem Nonspecific abnormal results of other specified function study 794.9 October 05, 2007 Active Problem Nonspecific abnormal results of liver function study 7 94.8 Mar 06, 2009 Active Medications No Known Medications Results No Known Results Summary Purpose [employer] Submission
--- OUTSIDE RECORDS SUMMARY | 2019-08-14 10:56 | XMS REPORT ---
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
--- OUTSIDE RECORDS SUMMARY | 2019-08-14 10:56 | XMS REPORT ---
Author Author Jamal Vasquez Organization [employer] Address Unknown Phone Unavailable Care Team Providers Care Chimney Repairer Name Role Phone Kiesha Vasquez CP Unavailable Allergies, Adverse Reactions, Alerts Substance Reaction Event Type N.K.D.A. 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 Active Problem Essential hypertension, benign 401.1 Active Problem Mixed hyperlipidemia 272.2 Active Problem Atrophic gastritis 535.10 Active Problem Bronchitis, acute 466.0 Nov 27, 2008 Active Assessment Cough R05 Active Assessment Influenza-like symptoms R68.89 Acti ve Problem Malaise and fatigue 780.79 Active Problem B12 deficiency 266.2 Active Problem Lumbosacral spondylosis 721.3 Acti ve Problem Generalized anxiety disorder 300.02 Active Problem Mahmood's esophagus 530.85 Active Problem Disorder of lipid metabolism 272.9 Active Problem Esophageal reflux 530.81 Active Problem Vitamin D deficiency 268.9 Active Problem Type 2 diabetes mellitus 250.00 Act felicia Problem History of colonic polyps V12.72 Ac tive Problem Low back pain 724.2 Active Problem Nasopharyngitis acute 460 May 31, 2011 Acti ve Problem Lumbar pain 724.2 August 07, 2007 Active Problem Acute gastritis 535.00 August 07, 2007 Active Problem Gastro-esophageal reflux 530.81 Jan 12, 2007 Act felicia Problem Lumbar disc herniation with radiculopathy 722.10 Nov 04, 2010 Active Problem Allergic pharyngitis 462 Feb 03, 2011 Active Problem Right ear pain 388.70 June 10, 2010 Active Problem Costochondritis 733.6 Feb 13, 2010 Active Problem ANDREZ (generalized anxiety disorder) 300.02 Nov 272011 Active Problem Degenerative arthritis of lumbar spine 721.3 Au g 2010 Active Problem Essential hypertension, benign 401.1 Jan 12 07 Active Problem Mahmood's esophagus 530.85 August 12, 2010 Active Problem Mixed hyperlipidemia 272.2 Dec 17, 2011 Active Problem Unspecified vitamin D deficiency 268.9 June Active Problem Essential hypertension 401.9 Activ e Problem 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 October 04 008 Active Problem Vitamin D deficiency E55.9 Active Problem Acquired absence of kidney Z90.5 A ctive Problem Other chronic pain G89.29 Active Problem Lumbago with sciatica, left side M54.42 Active Problem Obesity (BMI 30-39.9) E66.9 Active Problem Benign non-nodular prostatic hyperplasia with lower urinary tract symptoms N40.1 Active Problem Anxiety F41.9 Active Problem Acute frontal sinusitis 461.1 Dec 29, 2011 Acti ve Problem Hypertension I10 Active Problem Atrophic gastritis 535.1 August 12, 2010 Active Problem Benign non-nodular prostatic hyperplasia without lower urinary tract symptoms N40.0 Active Problem Reflux esophagitis 530.11 August 07, 2007 Active Problem Type 2 diabetes mellitus E11.9 Act felicia Problem Unspecified disorder of lipoid metabolism 272.9 Mar 10, 2010 Active Problem Mixed hyperlipidemia E78.2 Active Problem Other B-complex deficiencies 266.2 July 07 13 Active Problem Nonspecific abnormal results of liver function study 7 94.8 Mar 06, 2009 Active Problem Hyperglycemia (Other abnormal blood chemistry) 790.6 Mar 30, 2013 Active Problem Annual Physical (Routine gen eral medical examination at health care facility) V70.0 Jan 12, 2007 Active Problem Nonspecific abnormal results of other specified function study 794.9 October 05, 2007 Active Problem Acute maxillary sinusitis 461.0 Nov 27, 2008 A ctive Problem Personal history of colonic polyps V12.72 July Active Medications Medication Code System Code Instructions Start Date End Date Status Dosage Tricor [place] 20616779626 145 MG by mouth daily Active 1 tablet Levaquin ND 57979393381 500 mg Orally every day Act felicia 1 tablet Fenofibrate ND 44542339919 160 MG Orally Once a day Active 1 tablet with a meal Guaifenesin-Codeine [facility] 09891664435 100-10 MG/5ML Orally every 6 hrs Active 5-10 mls Vitamin D (Ergocalciferol) [facility] 68141448732 85843 UNIT Orally onc e per week Active 1 capsule Citalopram Hydrobromide [facility] 69565523377 10 mg by mouth daily Active 1 tablet Tramadol HCl [facility] 64236992173 50 mg Orally qd-bid Act felicia 1 tablet as needed MetFORMIN HCl ER [facility] 38132548041 500 MG Orally twice a day (bid) Active 2 tablets with food Tamiflu [facility] 73210923321 75 mg Orally Twice a day May 20, 2017 Active 1 capsule Lisinopril [facility] 70179516196 40 mg Orally Once a day A ctive 1 tablet Doxazosin Mesylate [facility] 74186571193 1 MG Orally Once a day Active 1 tablet Pantoprazole Sodium [facility] 85984266447 40 mg by mouth bid Active 1 tablet Astepro [facility] 25521774186 0.15 % Nasally Twice a day October 15, 2016 Active 1-2 sprays in each nostril Vital Signs Date/Time: May 20, 2017 Weight 212 lbs Height 66 in Temperature 97.2 F Cardiac Monitoring Heart Rate 65 /min BMI 34.21 Index Results No Known Results Summary Purpose [employer] Submission
--- OUTSIDE RECORDS SUMMARY | 2019-08-14 10:56 | XMS REPORT ---
Author Author Jamal Schwartz Organization [employer] Address Unknown Phone Unavailable Care Team Providers Care Electronic Scale Subassembler Name Role Phone Lonny Schwartz CP Unavailable Allergies No Known Allergies Problems Problem [...] acute 466.0 Nov 27, 2008 Active Problem Malaise and fatigue 780.79 Active [...] lumbar spine 721.3 Au 2010 Active Problem Essential hypertension, benign 401.1 [...] of colonic polyps V12.72 July Active Medications No Known Medications Results No Known Results Summary Purpose [employer] Submission
--- OUTSIDE RECORDS SUMMARY | 2019-08-14 10:56 | XMS REPORT ---
Author Author Jamal Vasquez Organization [employer] Address Unknown Phone Unavailable Care Team Providers Care Web Specialist Name Role Phone Kiesha Vasquez Unavailable Allergies [...]
--- OUTSIDE RECORDS SUMMARY | 2019-08-14 10:56 | XMS REPORT ---
Author Author Jamal Vasquez Organization [employer] Address Unknown Phone Unavailable Care Team Providers Care Imitation Marble Mechanic Name Role Phone Kiesha Vasquez Unavailable Allergies [...]
--- OUTSIDE RECORDS SUMMARY | 2019-08-14 10:56 | XMS REPORT ---
Author Author Jamal Vasquez Organization [employer] Address Unknown Phone Unavailable Care Team Providers Care Security Delivery Specialist Name Role Phone Kiesha Vasquez Unavailable [...]
--- OUTSIDE RECORDS SUMMARY | 2019-08-14 10:56 | XMS REPORT ---
Author Author Jamal Vasquez Organization [employer] Address Unknown Phone Unavailable Care Team Providers Care Air Export Coordinator Name Role Phone Kiesha Vasquez Unavailable Allergies, Adverse Reactions, Alerts Substance Reaction Event Type N.K.D.A. 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 October 04 008 Active Problem Nonspecific abnormal results of other specified function study 794.9 October 05, 2007 Active Problem Diarrhea 787.91 October 05, 2007 Active Problem Heartburn 787.1 October 05, 2007 Active Problem Lumbar pain 724.2 August 07, 2007 Active Problem Abdominal pain, right upper quadrant 789.01 August 07, 2007 Active Problem Acute gastritis 535.00 August 07, 2007 Active Problem Reflux esophagitis 530.11 August 07, 2007 Active Problem Annual Physical (Routine gen eral medical examination at health care facility) V70.0 Jan 12, 2007 Active Problem Gastro-esophageal reflux 530.81 Jan 12, 2007 Act felicia Problem Essential hypertension, benign 401.1 Jan 12 07 Active Assessment Vitamin D deficiency E55.9 Active Assessment Other chronic pain G89.29 Active Assessment Benign non-nodular prostatic hyperplasia with lower urinary tract symptoms N40.1 Active Assessment Type 2 diabetes mellitus wit hout complication, without long-term current use of insulin E11.9 Active Assessment Lumbago with sciatica, left side M54.42 Active Assessment Multilevel foraminal stenosis M48.00 Active Problem 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 Active Problem B12 deficiency 266.2 Active Problem Vitamin D deficiency 268.9 Active Problem Disorder of lipid metabolism 272.9 Active Problem Low back pain 724.2 Active Problem Mixed hyperlipidemia 272.2 Active Problem Lumbosacral spondylosis 721.3 Acti ve Problem Esophageal reflux 530.81 Active Problem Malaise and fatigue 780.79 Active Problem History of colonic polyps V12.72 Ac tive Problem Generalized anxiety disorder 300.02 Active Problem Hyperglycemia (Other abnormal blood chemistry) 790.6 Mar 30, 2013 Active Assessment Acute non-recurrent frontal sinusitis J01.10 Active Assessment Essential hypertension I10 Activ e Assessment Mixed hyperlipidemia E78.2 Active Problem Mixed hyperlipidemia 272.2 Dec 17, 2011 Active Problem ANDREZ (generalized anxiety disorder) 300.02 Nov 272011 Active Problem Unspecified vitamin D deficiency 268.9 June Active Problem Other B-complex deficiencies 266.2 July 07 13 Active Problem Acute frontal sinusitis 461.1 Dec 29, 2011 Acti ve Problem Other malaise and fatigue 780.79 May 31, 2012 Active Problem Allergic pharyngitis 462 Feb 03, 2011 Active Problem Lumbar disc herniation with radiculopathy 722.10 Nov 04, 2010 Active Problem Degenerative arthritis of lumbar spine 721.3 Au g 2010 Active Problem Atrophic gastritis 535.1 August 12, 2010 Active Problem Essential hypertension, benign 401.1 Active Problem Nasopharyngitis acute 460 May 31, 2011 Acti ve Problem Atrophic gastritis 535.10 Active Problem Mahmood's esophagus 530.85 Active Problem Essential hypertension 401.9 Activ e Problem Type 2 diabetes mellitus 250.00 Act felicia Problem Essential hypertension I10 Activ e Problem Type 2 diabetes mellitus wit hout complication, without long-term current use of insulin E11.9 Active Problem Benign non-nodular prostatic hyperplasia without lower urinary tract symptoms N40.0 Active Problem Costochondritis 733.6 Feb 13, 2010 Active Problem Other chronic pain G89.29 Active Problem Unspecified disorder of lipoid metabolism 272.9 Mar 10, 2010 Active Problem Acquired absence of kidney Z90.5 A ctive Problem Right ear pain 388.70 June 10, 2010 Active Problem Vitamin D deficiency E55.9 Active Problem Personal history of colonic polyps V12.72 July Active Problem Lumbago with sciatica, left side M54.42 Active Problem Mahmood's esophagus 530.85 August 12, 2010 Active Problem Bronchitis, acute 466.0 Nov 27, 2008 Active Problem Other dyspnea and respiratory abnormalities 786.09 Feb 26, 2008 Active Problem Nonspecific abnormal results of liver function study 7 94.8 Mar 06, 2009 Active Problem Acute maxillary sinusitis 461.0 Nov 27, 2008 A ctive Problem Fever and other physiologic disturbances of temperature regulation 780.6 May 26, 2009 Active Problem Cough 786.2 May 26, 2009 Active Medications Medication Code System Code Instructions Start Date End Date Status Dosage Citalopram Hydrobromide [facility] [address]-81 10 mg by mouth daily Active 1 tablet Tramadol HCl [facility] [address]-99 50 mg Orally qd-bid A ctive 1 tablet as needed Pantoprazole Sodium [facility] [address]-12 40 mg by mouth daily Active 1 tablet Fenofibrate [facility] [address]-63 160 MG Orally Once a day Active 1 tablet with a meal Cefdinir [facility] [address]-72 300 MG Orally daily October 15, 2016 Ju ly 2016 Active 2 capsules Doxazosin Mesylate [facility] [address]-53 1 MG Orally Once a day Active 1 tablet MetFORMIN HCl ER [facility] [address]-93 500 MG Orally twice a day (bid) Active 2 tablets with food Tricor [facility] [address]-81 145 MG by mouth daily Acti ve 1 tablet Lisinopril [facility] [address]-78 40 mg Orally Once a day Active 1 tablet Hydrochlorothiazide [facility] [address]-64 25 MG Orally qam Jan 07, 2016 Feb 07, 2016 Active 1/2 to 1 tablet Meloxicam [facility] [address]-07 15 MG Orally once a day Active 1 tablet Astepro [facility] [address]-53 0.15 % Nasally Twice a day October 15, 2016 Active 1-2 sprays in each nostril Vitamin D (Ergocalciferol) [facility] [address]-19 [address]308 UNIT Orally once per week Active 1 capsule Vital Signs Date/Time: October 15, 2016 Weight 212 lbs Height 66 in Temperature 97.4 F Cardiac Monitoring Heart Rate 68 /min BMI 34.21 Index Results No Known Results Summary Purpose [employer] Submission
--- OUTSIDE RECORDS SUMMARY | 2019-08-14 10:56 | XMS REPORT ---
Author Author Jamal Vasquez Organization [employer] Address Unknown Phone Unavailable Care Team Providers Care Bander Hand Name Role Phone Kiesha Vasquez CP Unavailable Allergies, Adverse Reactions, Alerts Substance Reaction Event Type N.K.D.A. 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 Active Problem Essential hypertension, benign 401.1 Active Problem Mixed hyperlipidemia 272.2 Active Problem Malaise and fatigue 780.79 Active Problem Disorder of lipid metabolism 272.9 Active Assessment Anxiety F41.9 Active Assessment Mixed hyperlipidemia E78.2 Active Assessment Vitamin D deficiency E55.9 Active Assessment Benign non-nodular prostatic hyperplasia with lower urinary tract symptoms N40.1 Active Assessment Type 2 diabetes mellitus E11.9 Act felicia Assessment Lumbago with sciatica, left side M54.42 Active Assessment Hypertension I10 Active Problem Degenerative arthritis of lumbar spine 721.3 Au 2010 Active Problem Right ear pain 388.70 June 10, 2010 Active Problem B12 deficiency 266.2 Active Problem Lumbosacral spondylosis 721.3 Acti ve Problem Atrophic gastritis 535.10 Active Problem Mahmood's esophagus 530.85 Active Problem History of colonic polyps V12.72 Ac tive Problem Esophageal reflux 530.81 Active Problem Generalized anxiety disorder 300.02 Active Problem Type 2 diabetes mellitus 250.00 Act felicia Problem Essential hypertension 401.9 Activ e Problem Low back pain 724.2 Active Problem Vitamin D deficiency 268.9 Active Problem Bronchitis, acute 466.0 Nov 27, 2008 Active Problem Lumbar disc herniation with radiculopathy 722.10 Nov 04, 2010 Active Problem Allergic pharyngitis 462 Feb 03, 2011 Active Problem ANDREZ (generalized anxiety disorder) 300.02 Nov 272011 Active Problem 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 October 04 008 Active Problem Costochondritis 733.6 Feb 13, 2010 Active Problem Acute gastritis 535.00 August 07, 2007 Active Problem Gastro-esophageal reflux 530.81 Jan 12, 2007 Act felicia Problem Nasopharyngitis acute 460 May 31, 2011 Acti ve Problem Lumbar pain 724.2 August 07, 2007 Active Problem Mahmood's esophagus 530.85 August 12, 2010 Active Problem Mixed hyperlipidemia 272.2 Dec 17, 2011 Active Problem Unspecified vitamin D deficiency 268.9 June Active Problem Other B-complex deficiencies 266.2 July 07 13 Active Problem Vitamin D deficiency E55.9 Active Problem Essential hypertension, benign 401.1 Jan 12 07 Active Problem Acquired absence of kidney Z90.5 A ctive Problem Lumbago with sciatica, left side M54.42 Active Problem Benign non-nodular prostatic hyperplasia without lower urinary tract symptoms N40.0 Active Problem Other chronic pain G89.29 Active Problem Type 2 diabetes mellitus wit hout complication, without long-term current use of insulin E11.9 Active Problem Benign non-nodular prostatic hyperplasia with lower urinary tract symptoms N40.1 Active Problem 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 Active Problem Acute maxillary sinusitis 461.0 Nov 27, 2008 A ctive Problem Mixed hyperlipidemia E78.2 Active Problem Acute frontal sinusitis 461.1 Dec 29, 2011 Acti ve Problem Hypertension I10 Active Problem Atrophic gastritis 535.1 August 12, 2010 Active Problem Anxiety F41.9 Active Problem Reflux esophagitis 530.11 August 07, 2007 Active Problem Obesity (BMI 30-39.9) E66.9 Active Problem Unspecified disorder of lipoid metabolism 272.9 Mar 10, 2010 Active Problem Hyperglycemia (Other abnormal blood chemistry) 790.6 Mar 30, 2013 Active Problem Abdominal pain, right upper quadrant 789.01 August 07, 2007 Active Problem Nonspecific abnormal results of other specified function study 794.9 October 05, 2007 Active Problem Nonspecific abnormal results of liver function study 7 94.8 Mar 06, 2009 Active Problem Personal history of colonic polyps V12.72 July Active Problem Annual Physical (Routine gen eral medical examination at health care facility) V70.0 Jan 12, 2007 Active Medications Medication Code System Code Instructions Start Date End Date Status Dosage Vitamin D (Ergocalciferol) [facility] [id number] UNIT Ora lly twice a week Jan 23, 2018 Apr 23, 2018 Active 1 capsule Vitamin D2 [facility] 02659622502 50,000 by mouth two times a week Apr 20, 2018 Active 1 capsule by mouth once a week Citalopram Hydrobromide [facility] 64588638673 10 mg by mouth daily Active 1 tablet Pantoprazole Sodium [facility] 99978072359 40 mg by mouth bid Active 1 tablet MetFORMIN HCl ER [facility] 74234095423 500 mg Orally twice a day (bid) Jan 20, 2018 Active 1 tablet with food Lisinopril [facility] 59195676473 40 mg Orally Once a day A ctive 1 tablet Astepro [facility] 93839584574 0.15 % Nasally Twice a day October 15, 2016 Active 1-2 sprays in each nostril Doxazosin Mesylate [facility] 92883390436 1 MG Orally Once a day Active 1 tablet Tricor [facility] 42879400000 145 MG by mouth daily Active 1 tablet Fenofibrate [facility] 67864764143 160 MG Orally Once a day Active 1 tablet with a meal MetFORMIN HCl ER ND 19832456711 500 MG Orally twice a day (bid) Inactive 2 tablets with food Tramadol HCl [facility] 49319620138 50 mg Orally qd-bid Act felicia 1 tablet as needed Vital Signs Date/Time: Jan 20, 2018 Weight 213 lbs Height 66 in Temperature 97.7 F Cardiac Monitoring Heart Rate 87 /min BMI 34.38 Index Results No Known Results Summary Purpose [employer] Submission
--- OUTSIDE RECORDS SUMMARY | 2019-08-14 10:56 | XMS REPORT ---
Author Author Jamal Vasquez Organization [employer] Address Unknown Phone Unavailable Care Team Providers Care Plastic Fabricator Name Role Phone Kiesha Vasquez Unavailable Allergies No Known Allergies Problems Problem Type Condition Code Onset Dates Condition Statu s Problem Cough 786.2 May 26, 2009 Active Problem Heartburn 787.1 October 05, 2007 Active Problem Other malaise and fatigue 780.79 May 31, 2012 Active Problem Other dyspnea and respiratory abnormalities 786.09 Feb 26, 2008 Active Problem Fever and other physiologic disturbances of temperature regulation 780.6 May 26, 2009 Active Problem 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 Active Problem Essential hypertension, benign 401.1 Active Problem Mixed hyperlipidemia 272.2 Active Problem Malaise and fatigue 780.79 Active Problem Disorder of lipid metabolism 272.9 Active Problem Atrophic gastritis 535.10 Active Assessment Vitamin D deficiency E55.9 Active Problem ANDREZ (generalized anxiety disorder) 300.02 Nov 272011 Active Problem Right ear pain 388.70 June 10, 2010 Active Problem Degenerative arthritis of lumbar spine 721.3 Au g 2010 Active Problem Esophageal reflux 530.81 Active Problem B12 deficiency 266.2 Active Problem Lumbosacral spondylosis 721.3 Acti ve Problem History of colonic polyps V12.72 Ac tive Problem Low back pain 724.2 Active Problem Generalized anxiety disorder 300.02 Active Problem Mahmood's esophagus 530.85 Active Problem Essential hypertension 401.9 Activ e Problem Vitamin D deficiency E55.9 Active Problem Vitamin D deficiency 268.9 Active Problem Type 2 diabetes mellitus 250.00 Act felicia Problem Gastro-esophageal reflux 530.81 Jan 12, 2007 Act felicia Problem Bronchitis, acute 466.0 Nov 27, 2008 Active Problem Lumbar disc herniation with radiculopathy 722.10 Nov 04, 2010 Active Problem Allergic pharyngitis 462 Feb 03, 2011 Active Problem Essential hypertension, benign 401.1 Jan 12 07 Active Problem 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 October 04 008 Active Problem Lumbar pain 724.2 August 07, 2007 Active Problem Acute gastritis 535.00 August 07, 2007 Active Problem Costochondritis 733.6 Feb 13, 2010 Active Problem Nasopharyngitis acute 460 May 31, 2011 Acti ve Problem Mixed hyperlipidemia 272.2 Dec 17, 2011 Active Problem Unspecified vitamin D deficiency 268.9 June Active Problem Other B-complex deficiencies 266.2 July 07 13 Active Problem Unspecified disorder of lipoid metabolism 272.9 Mar 10, 2010 Active Problem Acquired absence of kidney Z90.5 A ctive Problem Mahmood's esophagus 530.85 August 12, 2010 Active Problem Lumbago with sciatica, left side M54.42 Active Problem Other chronic pain G89.29 Active Problem Hypertension I10 Active Problem Benign non-nodular prostatic hyperplasia without lower urinary tract symptoms N40.0 Active Problem 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 Active Problem Type 2 diabetes mellitus wit hout complication, without long-term current use of insulin E11.9 Active Problem History of prostate cancer Z85.46 A ctive Problem Personal history of colonic polyps V12.72 July Active Problem Obesity (BMI 30-39.9) E66.9 Active Problem Acute maxillary sinusitis 461.0 Nov 27, 2008 A ctive Problem Mixed hyperlipidemia E78.2 Active Problem Acute frontal sinusitis 461.1 Dec 29, 2011 Acti ve Problem Benign non-nodular prostatic hyperplasia with lower urinary tract symptoms N40.1 Active Problem Atrophic gastritis 535.1 August 12, 2010 Active Problem Anxiety F41.9 Active Problem Reflux esophagitis 530.11 August 07, 2007 Active Problem Abdominal pain, right upper quadrant 789.01 August 07, 2007 Active Problem Diarrhea 787.91 October 05, 2007 Active Problem Nonspecific abnormal results of liver function study 7 94.8 Mar 06, 2009 Active Problem Hyperglycemia (Other abnormal blood chemistry) 790.6 Mar 30, 2013 Active Problem Annual Physical (Routine gen eral medical examination at health care facility) V70.0 Jan 12, 2007 Active Problem Nonspecific abnormal results of other specified function study 794.9 October 05, 2007 Active Medications No Known Medications Results Name Result Date Reference Range Unit Abnormali ty Flag VITAMIN D, 1,25 DIHYDROXY LC/MS/MS ----VITAMIN D, 1,25 ([place])2, 68.3 [id number] Summary Purpose [employer]Works Submission
--- OUTSIDE RECORDS SUMMARY | 2019-08-14 10:56 | XMS REPORT ---
Author Author Jamal Vasquez Organization [employer] Address Unknown Phone Unavailable Care Team Providers Care Psychological Examiner Name Role Phone Kiesha Vasquez Unavailable Allergies [...] acute 466.0 Nov 27, 2008 Active Assessment Other age-related cataract of both eyes H25.89 Active Assessment Pre-op evaluation Z01.818 Active Problem Lumbar pain 724.2 August 07, [...]
--- OUTSIDE RECORDS SUMMARY | 2019-08-14 10:56 | XMS REPORT ---
Author Author Jamal Vasquez Organization [employer] Address Unknown Phone Unavailable Care Team Providers Care Appliance Sales Associate Name Role Phone Kiesha Vasquez CP Unavailable [...] 272.2 Active Problem Atrophic gastritis 535.10 Active Assessment Costochondritis, acute M94.0 Activ e Assessment Lumbago with sciatica, left side M54.42 Active Assessment Anxiety F41.9 Active Assessment Hypertension I10 Active Assessment Obesity (BMI 30-39.9) E66.9 Active Assessment Vitamin D deficiency E55.9 Active Assessment Mixed hyperlipidemia E78.2 Active Problem Bronchitis, acute 466.0 Nov 27, 2008 Active Assessment Type 2 diabetes mellitus E11.9 Act felicia Assessment Benign non-nodular prostatic hyperplasia with lower urinary tract symptoms N40.1 Active Problem Malaise and fatigue 780.79 Active [...] 2007 Active Problem Acute maxillary sinusitis 461.0 Sept 02, 2009 A ctive Problem Personal history of colonic polyps V12.72 July Active Medications Medication Code System Code Instructions Start Date End Date Status Dosage MetFORMIN HCl ER [facility] 25837222833 500 MG Orally twice a day (bid) Active 2 tablets with food Fenofibrate [facility] 29219003472 160 MG Orally Once a day Active 1 tablet with a meal Doxazosin Mesylate [facility] 21352236009 1 MG Orally Once a day Active 1 tablet Pantoprazole Sodium [facility] 41603387919 40 mg by mouth bid Active 1 tablet Lisinopril [facility] 09777582242 40 mg Orally Once a day A ctive 1 tablet Meloxicam [facility] 48184062982 7.5 MG Orally Once a day Apr 22, 2017 May 02, 2017 Active 1 tablet Vitamin D (Ergocalciferol) [facility] 76271822875 29829 UNIT Orally onc e per week Active 1 capsule Astepro [facility] 38877247174 0.15 % Nasally Twice a day October 15, 2016 Active 1-2 sprays in each nostril Tricor [facility] 24375917288 145 MG by mouth daily Active 1 tablet Tramadol HCl [facility] 39294367656 50 mg Orally qd-bid Act felicia 1 tablet as needed Citalopram Hydrobromide [facility] 90601714539 10 mg by mouth daily Active 1 tablet Vital Signs Date/Time: Apr 22, 2017 Weight 216 lbs Height 66 in Temperature 98.6 F Cardiac Monitoring Heart Rate 69 /min BMI 34.86 Index Results No Known Results Summary Purpose [employer] Submission
--- OUTSIDE RECORDS SUMMARY | 2019-08-14 10:56 | XMS REPORT ---
Author Author Jamal Vasquez Organization [employer] Address Unknown Phone Unavailable Care Team Providers Care Thermodynamics Engineer Name Role Phone Kiesha Vasquez CP Unavailable Allergies, Adverse Reactions, Alerts Substance Reaction Event Type N.K.D.A. Info Not Available Non Drug Allergy Problems Problem Type Condition Code Onset Dates Condition Statu s Assessment History of prostate cancer Z85.46 A ctive Assessment Anxiety F41.9 Active Problem Cough 786.2 May 26, 2009 [...] Assessment Vitamin D deficiency E55.9 Active Assessment Lumbago with sciatica, left side M54.42 Active Assessment Mixed hyperlipidemia E78.2 Active Assessment Type 2 diabetes mellitus E11.9 Act felicia Assessment Benign non-nodular prostatic hyperplasia with lower urinary tract symptoms N40.1 Active Assessment Hypertension I10 Active Problem ANDREZ (generalized anxiety disorder) 300.02 Nov 272011 Active Problem Right ear pain 388.70 June 10, 2010 Active Problem Degenerative arthritis of lumbar spine 721.3 Au g , 2010 Active Problem Esophageal reflux 530.81 Active [...] Active Problem 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 42892244212 10 mg by mouth daily Active 1 tablet MetFORMIN HCl ER [facility] 98982623820 500 mg Orally twice a day (bid) Active 1 tablet with food Astepro [facility] 67718152754 0.15 % Nasally Twice a day October 15, 2016 Active 1-2 sprays in each nostril Tricor [facility] 22611873431 145 MG by mouth daily Active [address] [facility] 84313090777 40 mg Orally Once a day A ctive 1 tablet Doxazosin Mesylate [facility] 40462720382 1 MG Orally Once a day Active [address] [facility] 53110009530 160 MG Orally Once a day Active 1 tablet with a meal Fenofibrate [facility] 40090628753 160 MG Orally Once a day September 26, 2018 Active 1 tablet with food Tramadol HCl [facility] 00854545884 50 mg Orally qd-bid Act felicia 1 tablet as needed Pantoprazole Sodium [facility] 29068015945 40 mg by mouth bid Active 1 tablet Vital Signs Date/Time: September 22, 2018 Weight 201 lbs Height 66 in Temperature 98.2 F Cardiac Monitoring Heart Rate 73 /min BMI 32.44 Index Results No Known Results Summary Purpose [employer] Submission
--- OUTSIDE RECORDS SUMMARY | 2019-08-14 10:56 | XMS REPORT ---
Author Author Jamal Vasquez Organization [employer] Address Unknown Phone Unavailable Care Team Providers Care Research And Development Technician Name Role Phone Kiesha Vasquez CP Unavailable Allergies, Adverse Reactions, Alerts Substance Reaction Event Type N.K.D.A. Info Not Available Non Drug Allergy Problems Problem Type Condition Code Onset Dates Condition Statu s Assessment Mixed urge and stress incontinence N39.46 Active Problem Other dyspnea and respiratory abnormalities [...] 272.9 Active Problem Atrophic gastritis 535.10 Active Problem Lumbosacral spondylosis 721.3 Acti ve Assessment Vitamin D deficiency E55.9 Active Assessment Benign non-nodular prostatic hyperplasia with lower urinary tract symptoms N40.1 Active Assessment Mixed hyperlipidemia E78.2 Active Problem Right ear pain 388.70 June 10, 2010 Active Assessment Hypertension I10 Active Assessment Type 2 diabetes mellitus E11.9 Act felicia Problem Allergic pharyngitis 462 Feb 03, 2011 Active Problem Degenerative arthritis of lumbar spine 721.3 Au g 2010 Active Problem ANDREZ (generalized anxiety disorder) 300.02 Nov 2 2011 Active Problem Generalized anxiety disorder 300.02 Active Problem Esophageal reflux 530.81 Active Problem B12 deficiency 266.2 Active Problem Low back pain 724.2 Active Problem Vitamin D deficiency 268.9 Active Problem Mahmood's esophagus 530.85 Active Problem History of colonic polyps V12.72 Ac tive Problem Vitamin D deficiency E55.9 Active Problem Acquired absence of kidney Z90.5 A ctive Problem Type 2 diabetes mellitus 250.00 Act felicia Problem Essential hypertension 401.9 Activ e Problem Acute gastritis 535.00 August 07, 2007 Active Problem Gastro-esophageal reflux 530.81 Jan 12, 2007 Act felicia Problem Bronchitis, acute 466.0 Nov 27, 2008 Active Problem Lumbar disc herniation with radiculopathy 722.10 Nov 04, 2010 Active Problem Mahmood's esophagus 530.85 August 12, 2010 Active Problem Essential hypertension, benign 401.1 Jan 12 07 Active Problem Nasopharyngitis acute 460 May 31, 2011 Acti ve Problem Lumbar pain 724.2 August 07, 2007 Active Problem 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 October 04 008 Active Problem Costochondritis 733.6 Feb 13, 2010 Active Problem Unspecified vitamin D deficiency [...] E78.2 Active Problem Hypertension I10 Active Problem History of prostate cancer Z85.46 A ctive Problem 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 Active Problem Mixed urge and stress incontinence N39.46 Active Problem Annual Physical (Routine gen eral medical examination at health care facility) V70.0 Jan 12, 2007 Active Problem Anxiety F41.9 Active Problem Personal history of colonic polyps V12.72 July Active Problem Obesity (BMI 30-39.9) E66.9 Active Problem Acute maxillary sinusitis 461.0 Nov 27, 2008 A ctive Problem Type 2 diabetes mellitus wit hout complication, without long-term current use of insulin E11.9 Active Problem Acute frontal sinusitis 461.1 Dec [...] 7 94.8 Mar 06, 2009 Active Medications Medication Code System Code Instructions Start Date End Date Status Dosage Astepro [facility] 89316440472 0.15 % Nasally Twice a day October 15, 2016 Active 1-2 sprays in each nostril Citalopram Hydrobromide [facility] 97669297225 10 mg by mouth daily Active 1 tablet Fenofibrate [facility] 70216137239 160 MG Orally Once a day Active 1 tablet with food MetFORMIN HCl ER [facility] 58691053561 500 mg Orally twice a day (bid) Active 1 tablet with food Pantoprazole Sodium [facility] 40086249375 40 mg by mouth bid Active 1 tablet Tramadol HCl [facility] 51250358331 50 mg Orally qd-bid Act felicia 1 tablet as needed Dicyclomine HCl [facility] [address]-95 20 mg Orally four times a day (qid) Active 1 tablet Doxazosin Mesylate [facility] 93249310972 1 MG Orally Once a day Active 1 tablet Lisinopril [facility] 97624119584 40 mg Orally Once a day A ctive 1 tablet Fenofibrate [facility] 13377452791 160 MG Orally Once a day Active 1 tablet with a meal Ditropan XL [facility] 86007639485 5 MG Orally Once a day Mar 27, 2019 June 25, 2019 Active 1 tablet Tricor [facility] 05572020598 145 MG by mouth daily Active 1 tablet Vital Signs Date/Time: Mar 27, 2019 Weight 208 lbs Height 66 in Temperature 97.6 F Cardiac Monitoring Heart Rate 85 /min BMI 33.57 Index Results No Known Results Summary Purpose [employer] Submission
--- OUTSIDE RECORDS SUMMARY | 2019-08-14 10:56 | XMS REPORT ---
Author Author Jamal Vasquez Organization [employer] Address Unknown Phone Unavailable Care Team Providers Care Insole Buffer Name Role Phone Kiesha Vasquez Unavailable Allergies [...]
--- OUTSIDE RECORDS SUMMARY | 2019-08-14 10:56 | XMS REPORT ---
Author Author Jamal Vasquez Organization [employer] Address Unknown Phone Unavailable Care Team Providers Care Learning Developer Name Role Phone Kiesha Vasquez Unavailable Allergies [...] pain 388.70 June 10, 2010 Active Assessment Benign non-nodular prostatic hyperplasia with lower urinary tract symptoms N40.1 Active Problem Mahmood's esophagus 530.85 August 12, [...] Instructions Start Date End Date Status Dosage Doxazosin Mesylate [facility] 15315916549 1 MG Orally Once a day Active 1 tablet Results No Known Results Summary Purpose [employer] Submission
--- OUTSIDE RECORDS SUMMARY | 2019-08-14 10:56 | XMS REPORT ---
Author Author Jamal Schwartz Organization [employer] Address Unknown Phone Unavailable Care Team Providers Care Baling Machine Tender Name Role Phone Lonny Schwartz CP Unavailable [...] Active Problem Atrophic gastritis 535.10 Active Problem ANDREZ (generalized anxiety disorder) 300.02 [...] 2007 Active Medications No Known Medications Results No Known Results Summary Purpose [employer] Submission
--- OUTSIDE RECORDS SUMMARY | 2019-08-14 10:57 | XMS REPORT ---
Author Author Jamal Vasquez Organization [employer] Address Unknown Phone Unavailable Care Team Providers Care Electroplating Laborer Name Role Phone Kiesha Vasquez Unavailable Allergies [...] Active Problem Atrophic gastritis 535.10 Active Problem Right ear pain 388.70 June 10, 2010 Active Problem Malaise and fatigue 780.79 Active [...] Problem Low back pain 724.2 Active Problem Lumbar disc herniation with radiculopathy 722.10 Nov 04, 2010 Active Problem Allergic pharyngitis 462 Feb 03, 2011 Active Problem ANDREZ (generalized anxiety disorder) 300.02 Nov 272011 Active Problem Degenerative arthritis of lumbar spine 721.3 Au 2010 Active Problem Costochondritis 733.6 Feb 13, 2010 Active Problem Nasopharyngitis acute 460 May 31, 2011 Acti ve Problem Gastro-esophageal reflux 530.81 Jan 12, 2007 Act felicia Problem Bronchitis, acute 466.0 Nov 27, 2008 Active Problem Lumbar pain 724.2 August 07, 2007 Active Problem Acute gastritis 535.00 August 07, 2007 Active Problem Essential hypertension, benign 401.1 Jan [...] M54.42 Active Problem Benign non-nodular prostatic hyperplasia with lower urinary tract symptoms N40.1 Active Problem Anxiety F41.9 Active Problem Type 2 diabetes mellitus wit [...]
--- OUTSIDE RECORDS SUMMARY | 2019-08-14 10:57 | XMS REPORT ---
Author Author Jamal Vasquez Organization [employer] Address Unknown Phone Unavailable Care Team Providers Care National Sales Consultant Name Role Phone Kiesha Vasquez Unavailable Allergies [...]
--- OUTSIDE RECORDS SUMMARY | 2019-08-14 10:57 | XMS REPORT ---
Author Author Jamal Vasquez Organization [employer] Address Unknown Phone Unavailable Care Team Providers Care Dry Cleaner Name Role Phone Kiesha Vasquez Unavailable Encounters Encounter Location Date Other Lonny Schwartz MD [facility] October 09, 2015 HEB did not receive Cough Med RX Lonny Schwartz MD [facility] Ap 2015 sprained wrist??? Lonny Schwartz MD [facility] September 04, 2015 Sore Throat and cough Lonny Schwartz MD [facility] July 24 6 Problems Problem Type Condition ICD-9 Code Onset Dates Condition Statu s Problem Fever and other physiologic disturbances of temperature regulation 780.6 May 26, 2009 Active Problem Costochondritis 733.6 Feb 13, 2010 Active Problem Nonspecific abnormal results of liver function study 7 94.8 Mar 06, 2009 Active Problem Cough 786.2 May 26, 2009 Active Problem Acute maxillary sinusitis 461.0 Nov 27, 2008 A ctive Problem Bronchitis, acute 466.0 Nov 27, 2008 Active Problem Other dyspnea and respiratory abnormalities 786.09 Feb 26, 2008 Active Problem Nonspecific abnormal results of other specified function study 794.9 October 05, 2007 Active Problem 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 October 04 008 Active Problem Heartburn 787.1 October 05, 2007 Active Problem Diarrhea 787.91 October 05, 2007 Active Problem Acute gastritis 535.00 August 07, 2007 Active Problem Abdominal pain, right upper quadrant 789.01 August 07, 2007 Active Problem Lumbar pain 724.2 August 07, 2007 Active Problem Gastro-esophageal reflux 530.81 Jan 12, 2007 Act felicia Problem Essential hypertension, benign 401.1 Jan 12 07 Active Problem Reflux esophagitis 530.11 August 07, 2007 Active Problem Annual Physical (Routine gen eral medical examination at health care facility) V70.0 Jan 12, 2007 Active Problem 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 Active Problem Mixed hyperlipidemia 272.2 Active Problem Vitamin D deficiency 268.9 Active Problem B12 deficiency 266.2 Active Problem Other B-complex deficiencies 266.2 July 07 13 Active Problem Unspecified vitamin D deficiency 268.9 June Active Problem Other malaise and fatigue 780.79 May 31, 2012 Active Problem Acute frontal sinusitis 461.1 Dec 29, 2011 Acti ve Problem Lumbosacral spondylosis 721.3 Acti ve Problem Hyperglycemia (Other abnormal blood chemistry) 790.6 Mar 30, 2013 Active Problem Disorder of lipid metabolism 272.9 Active Problem Low back pain 724.2 Active Problem Generalized anxiety disorder 300.02 Active Problem History of colonic polyps V12. Ac tive Problem Type 2 diabetes mellitus 250.00 Act felicia Problem Mahmood's esophagus 530.85 Active Problem Essential hypertension 401.9 Activ e Problem Lumbar disc herniation with radiculopathy 722.10 Nov 04, 2010 Active Problem Malaise and fatigue 780.79 Active Problem Allergic pharyngitis 462 Feb 03, 2011 Active Problem Esophageal reflux 530.81 Active Problem Nasopharyngitis acute 460 May 31, 2011 Acti ve Problem Atrophic gastritis 535.10 Active Problem Mixed hyperlipidemia 272.2 Dec 17, 2011 Active Problem Essential hypertension, benign 401.1 Active Problem ANDREZ (generalized anxiety disorder) 300.02 Nov 272011 Active Problem Right ear pain 388.70 June 10, 2010 Active Problem Unspecified disorder of lipoid metabolism 272.9 Mar 10, 2010 Active Problem Mahmood's esophagus 530.85 August 12, 2010 Active Problem Personal history of colonic polyps V12.72 July Active Problem Degenerative arthritis of lumbar spine 721.3 Au 2010 Active Problem Atrophic gastritis 535.1 August 12, 2010 Active Social History Social History Element Qualifiers Date Reported Supplements . Do you use supplements Yes Omega3 Jakob 2015 Tobacco Use: . Are you a: never smoker September 04, 2015 Caffeine intake? . Status: Yes, What type: coffee (1 serving per day) and soda (1 serving per day) September 04, 2015 Do you drink alcohol? . Status: Yes, Type: Beer, Frequency Regular Use, Quantity 12 September 04, 2015 Summary Purpose [employer]Works Submission
--- OUTSIDE RECORDS SUMMARY | 2019-08-14 10:57 | XMS REPORT ---
Author Author Jamal Schwartz Organization [employer] Address Unknown Phone Unavailable Care Team Providers Care Power Plant Electrician Name Role Phone Lonny Schwartz CP Unavailable [...]
--- OUTSIDE RECORDS SUMMARY | 2019-08-14 10:57 | XMS REPORT ---
Author Author Jamal Vasquez Organization [employer] Address Unknown Phone Unavailable Care Team Providers Care Travel Counselor Name Role Phone Kiesha Vasquez Unavailable Allergies [...] Disorder of lipid metabolism 272.9 Active Problem Degenerative arthritis of lumbar spine [...] Problem 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 October 04, 2 008 Active Problem Costochondritis 733.6 Feb 13, [...] facility) V70.0 Jan 12, 2007 Active Medications No Known Medications Results No Known Results Summary Purpose [employer] Submission
--- OUTSIDE RECORDS SUMMARY | 2019-08-14 10:57 | XMS REPORT ---
Author Author Jamal Vasquez Organization [employer] Address Unknown Phone Unavailable Care Team Providers Care Developer Analyst Name Role Phone Kiesha Vasquez Unavailable Allergies No Known Allergies Problems Problem Type Condition Code Onset Dates Condition Statu s Problem Mixed hyperlipidemia 272.2 Dec 17, 2011 Active Problem Hyperglycemia (Other abnormal blood chemistry) 790.6 Mar 30, 2013 Active Problem Acute frontal sinusitis 461.1 Dec 29, 2011 Acti ve Problem Acute maxillary sinusitis 461.0 Nov 27, 2008 A ctive Problem Atrophic gastritis 535.1 August 12, 2010 Active Problem Mahmood's esophagus 530.85 August 12, 2010 Active Problem Essential hypertension, benign 401.1 Jan 12 07 Active Problem Essential hypertension, benign 401.1 Active Problem Mahmood's esophagus 530.85 Active Problem 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 Active Problem Esophageal reflux 530.81 Active Assessment Type 2 diabetes mellitus wit hout complication, without long-term current use of insulin E11.9 Active Problem Nonspecific abnormal results of other specified function study 794.9 October 05, 2007 Active Assessment Mixed hyperlipidemia E78.2 Active Assessment Vitamin D deficiency E55.9 Active Problem Vitamin D deficiency 268.9 Active Problem Generalized anxiety disorder 300.02 Active Problem Mixed hyperlipidemia 272.2 Active Problem Disorder of lipid metabolism 272.9 Active Problem Malaise and fatigue 780.79 Active Problem Low back pain 724.2 Active Problem History of colonic polyps V12.72 Ac tive Problem Atrophic gastritis 535.10 Active Problem Type 2 diabetes mellitus 250.00 Act felicia Problem B12 deficiency 266.2 Active Problem Lumbosacral spondylosis 721.3 Acti ve Problem 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 October 04 008 Active Problem Heartburn 787.1 October 05, 2007 Active Problem Diarrhea 787.91 October 05, 2007 Active Problem Abdominal pain, right upper quadrant 789.01 August 07, 2007 Active Problem Gastro-esophageal reflux 530.81 Jan 12, 2007 Act felicia Problem Bronchitis, acute 466.0 Nov 27, 2008 Active Problem Unspecified vitamin D deficiency 268.9 June Active Problem Reflux esophagitis 530.11 August 07, 2007 Active Problem ANDREZ (generalized anxiety disorder) 300.02 Nov 272011 Active Problem Other B-complex deficiencies 266.2 July 07 13 Active Problem Lumbar pain 724.2 August 07, 2007 Active Problem Costochondritis 733.6 Feb 13, 2010 Active Problem Fever and other physiologic disturbances of temperature regulation 780.6 May 26, 2009 Active Problem Other malaise and fatigue 780.79 May 31, 2012 Active Problem Essential hypertension 401.9 Activ e Problem Acute gastritis 535.00 August 07, 2007 Active Problem Acquired absence of kidney Z90.5 A ctive Problem Lumbago with sciatica, left side M54.42 Active Problem Vitamin D deficiency E55.9 Active Problem Other chronic pain G89.29 Active Problem Benign non-nodular prostatic hyperplasia with lower urinary tract symptoms N40.1 Active Problem Obesity (BMI 30-39.9) E66.9 Active Problem Type 2 diabetes mellitus wit hout complication, without long-term current use of insulin E11.9 Active Problem Personal history of colonic polyps V12.72 July Active Problem Mixed hyperlipidemia E78.2 Active Problem Annual Physical (Routine gen eral medical examination at health care facility) V70.0 Jan 12, 2007 Active Problem Benign non-nodular prostatic hyperplasia without lower urinary tract symptoms N40.0 Active Problem Nonspecific abnormal results of liver function study 7 94.8 Mar 06, 2009 Active Problem Anxiety F41.9 Active Problem Cough 786.2 May 26, 2009 Active Problem Hypertension I10 Active Problem Other dyspnea and respiratory abnormalities 786.09 Feb 26, 2008 Active Problem Right ear pain 388.70 June 10, 2010 Active Problem Unspecified disorder of lipoid metabolism 272.9 Mar 10, 2010 Active Problem Allergic pharyngitis 462 Feb 03, 2011 Active Problem Degenerative arthritis of lumbar spine 721.3 Au 2010 Active Problem Nasopharyngitis acute 460 May 31, 2011 Acti ve Problem Lumbar disc herniation with radiculopathy 722.10 Nov 04, 2010 Active Medications No Known Medications Results No Known Results Summary Purpose eClinicalWorks Submission
--- OUTSIDE RECORDS SUMMARY | 2019-08-14 10:57 | XMS REPORT ---
Author Author Jamal Vasquez Organization [employer] Address Unknown Phone Unavailable Care Team Providers Care Illuminator Name Role Phone Kiesha Vasquez Unavailable Allergies [...]
--- OUTSIDE RECORDS SUMMARY | 2019-08-14 10:57 | XMS REPORT ---
Author Author Jamal Vasquez Organization [employer] Address Unknown Phone Unavailable Care Team Providers Care Paid Search Marketing Analyst Name Role Phone Kiesha Vasquez Unavailable Allergies, Adverse Reactions, Alerts Substance Reaction Event Type N.K.D.A. 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 Active Problem Heartburn 787.1 October 05, 2007 [...] Disorder of lipid metabolism 272.9 Active Assessment Acute non-recurrent maxillary sinusitis J01.00 Active Assessment Vitamin D deficiency E55.9 Active Assessment Anxiety F41.9 Active Assessment Hypertension I10 Active Assessment Benign non-nodular prostatic hyperplasia with lower urinary tract symptoms N40.1 Active Assessment Mixed hyperlipidemia E78.2 Active Assessment Lumbago with sciatica, left side M54.42 Active Problem Degenerative arthritis of lumbar spine 721.3 Au 2010 Active Assessment Type 2 diabetes mellitus E11.9 Act felicia Problem Right ear pain 388.70 June 10, [...] Instructions Start Date End Date Status Dosage Fenofibrate [facility] 60693442795 160 MG Orally Once a day Active 1 tablet with a meal Citalopram Hydrobromide ND 35233762115 10 mg by mouth daily Active 1 tablet Lisinopril ND 26984716230 40 mg Orally Once a day A ctive 1 tablet Doxazosin Mesylate [facility] 98710610219 1 MG Orally Once a day Active 1 tablet Vitamin D (Ergocalciferol) [facility] 07890304431 73034 UNIT Ora lly once a week October 21, 2017 Jan 19, 2018 Active 1 capsule MetFORMIN HCl ER [facility] 28921787329 500 MG Orally twice a day (bid) Active 2 tablets with food Tricor [facility] 91539530775 145 MG by mouth daily Active 1 tablet Astepro [facility] 61907221513 0.15 % Nasally Twice a day October 15, 2016 Active 1-2 sprays in each nostril Cefdinir [facility] 29840938414 300 MG Orally every 12 hrs October 21Oct 31, 2017 Active 1 capsule Tramadol HCl [facility] 42348152145 50 mg Orally qd-bid Act felicia 1 tablet as needed Vitamin D (Ergocalciferol) [facility] 40111808102 49415 UNIT Orally October 21, 2017 Jan 19, 2018 Active 1 capsule Pantoprazole Sodium ND 83698490435 40 mg by mouth bid Active 1 tablet Vital Signs Date/Time: October 21, 2017 Weight 209 lbs Height 66 in Temperature 98.5 F Cardiac Monitoring Heart Rate 100 /min BMI 33.73 Index Results No Known Results Summary Purpose eClinicalWorks Submission
--- OUTSIDE RECORDS SUMMARY | 2019-08-14 10:57 | XMS REPORT ---
Author Author Jamal Vasquez Organization [employer] Address Unknown Phone Unavailable Care Team Providers Care Studio Manager Name Role Phone Kiesha Vasquez CP Unavailable [...] History of colonic polyps V12.72 Ac tive Assessment Obesity (BMI 30.0-34.9) E66.9 Acti ve Problem Bronchitis, acute 466.0 Nov 27, 2008 Active Assessment Cough R05 Active Assessment Acute non-recurrent frontal sinusitis J01.10 Active Problem Lumbar pain 724.2 August 07, [...] Date End Date Status Dosage Citalopram Hydrobromide [facility] 81499201360 10 mg by mouth daily Active 1 tablet Astepro [facility] 73758432559 0.15 % Nasally Twice a day October 15, 2016 Active 1-2 sprays in each nostril Dicyclomine HCl ND 33376643168 20 mg Orally four times a day (qid) Active 1 tablet Tramadol HCl ND 19501961752 50 mg Orally qd-bid Act felicia 1 tablet as needed MetFORMIN HCl ER ND 16393030292 500 mg Orally twice a day (bid) Active 1 tablet with food Pantoprazole Sodium ND 59389950763 40 mg by mouth bid Active 1 tablet Ditropan XL [facility] 30874312755 5 MG Orally Once a day Mar 27, 2019 June 25, 2019 Active 1 tablet Tricor [facility] 98033589306 145 MG by mouth daily Active 1 tablet Fenofibrate [facility] 14912849981 160 MG Orally Once a day Active 1 tablet with a meal Guaifenesin-Codeine [facility] 98692859023 100-10 MG/5ML Orally every 4 -6 hrs May 01, 2019 Active 5 -10 mls Doxazosin Mesylate ND 18971867857 1 MG Orally Once a day Active 1 tablet Lisinopril [facility] 94613488026 40 mg Orally Once a day A ctive 1 tablet Cefdinir [facility] 36525348211 300 MG Orally every 12 hrs October 21, 2017 Active 1 capsule Fenofibrate [facility] 81036572086 160 MG Orally Once a day Active 1 tablet with food Vital Signs Date/Time: May 01, 2019 Weight 206 lbs Height 66 in Temperature 98.5 F Cardiac Monitoring Heart Rate 84 /min BMI 33.25 Index Results No Known Results Summary Purpose eClinicalWorks Submission
--- OUTSIDE RECORDS SUMMARY | 2019-08-14 10:57 | XMS REPORT ---
Author Author Jamal Vasquez Organization [employer] Address Unknown Phone Unavailable Care Team Providers Care Business Solutions Architect Name Role Phone Kiesha Vasquez Unavailable Allergies [...]
--- OUTSIDE RECORDS SUMMARY | 2019-08-14 10:57 | XMS REPORT ---
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
--- OUTSIDE RECORDS SUMMARY | 2019-08-14 10:57 | XMS REPORT ---
Author Author Jamal Vasquez Organization [employer] Address Unknown Phone Unavailable Care Team Providers Care Wax Ball Knock Out Worker Name Role Phone Kiesha Vasquez Unavailable Allergies, [...] Active Problem Atrophic gastritis 535.10 Active Assessment Lumbago with sciatica, left side M54.42 Active Problem Bronchitis, acute 466.0 Nov 27, 2008 Active Assessment Hypertension I10 Active Assessment Benign [...] Instructions Start Date End Date Status Dosage Tramadol HCl ND 24178746914 50 mg Orally qd-bid Act felicia 1 tablet as needed Tricor ND 41829843372 145 MG by mouth daily Active 1 tablet Pantoprazole Sodium [facility][NOTE 3] 44663768122 40 mg by mouth bid Active 1 tablet Doxazosin Mesylate [facility][NOTE 3] 78613683495 1 MG Orally Once a day Active 1 tablet Lisinopril [facility][NOTE 3] 71889040721 40 mg Orally Once a day A ctive 1 tablet Astepro [facility][NOTE 3] 86429248981 0.15 % Nasally Twice a day October 15, 2016 Active 1-2 sprays in each nostril Fenofibrate [facility][NOTE 3] 71320971176 160 MG Orally Once a day Active 1 tablet with a meal MetFORMIN HCl ER [facility][NOTE 3] 93416494567 500 MG Orally twice a day (bid) Active 2 tablets with food Citalopram Hydrobromide [facility][NOTE 3] 03596312647 10 mg by mouth daily Active 1 tablet Vital Signs Date/Time: July 22, 2017 Weight 212 lbs Height 66 in Temperature 99.0 F Cardiac Monitoring Heart Rate 87 /min BMI 34.21 Index Results No Known Results Summary Purpose eClinicalWorks Submission
--- OUTSIDE RECORDS SUMMARY | 2019-08-14 10:57 | XMS REPORT ---
Author Author Jamal Vasquez Organization [employer] Address Unknown Phone Unavailable Care Team Providers Care Instructional Interventionist Name Role Phone Kiesha Vasquez Unavailable Encounters Encounter Location Date HEB did not receive Cough Med RX Lonny Schwartz MD [facility] Ap ril 2015 Problems Problem Type Condition ICD-9 Code Onset [...] 300.02 Active Problem History of colonic polyps V12.72 Ac tive Problem Type 2 diabetes mellitus [...] . Do you use supplements Yes Omega3 Jun Tobacco Use: . Are you a: never smoker July 24 6 Caffeine intake? . Status: Yes, What type: coffee (1 serving per day) and soda (1 serving per day) July 25, 2015 Do you drink alcohol? . Status: Yes, Type: Beer, Frequency Regular Use, Quantity 12 July 25, 2015 Summary Purpose eClinicalWorks Submission
--- OUTSIDE RECORDS SUMMARY | 2019-08-14 10:57 | XMS REPORT ---
Author Author Jamal Vasquez Organization [employer] Address Unknown Phone Unavailable Care Team Providers Care Box Toe Maker Name Role Phone Kiesha Vasquez CP Unavailable [...] Assessment Vitamin D deficiency E55.9 Active Assessment Hypertension I10 Active Assessment Type 2 diabetes mellitus E11.9 Act felicia Assessment Lumbago with sciatica, left side M54.42 Active Assessment Benign non-nodular prostatic hyperplasia with lower urinary tract symptoms N40.1 Active Problem Degenerative arthritis of lumbar spine [...] Date End Date Status Dosage Citalopram Hydrobromide [facility][NOTE 3] 39233102716 10 mg by mouth daily Active 1 tablet Tramadol HCl ND 98825555635 50 mg Orally qd-bid Act felicia 1 tablet as needed Lisinopril ND 43203677452 40 mg Orally Once a day A ctive 1 tablet MetFORMIN HCl ER ND 74589508748 500 mg Orally twice a day (bid) Jan 20, 2018 Active 1 tablet with food Astepro [facility][NOTE 3] 17244848317 0.15 % Nasally Twice a day October 15, 2016 Active 1-2 sprays in each nostril Tricor [facility][NOTE 3] 59487921360 145 MG by mouth daily Active 1 tablet Doxazosin Mesylate ND 98336561607 1 MG Orally Once a day Active 1 tablet Fenofibrate [facility][NOTE 3] 82708399408 160 MG Orally Once a day Active 1 tablet with a meal Vitamin D2 [facility][NOTE 3] 45197015958 50,000 by mouth two times a week Apr 20, 2018 Active 1 capsule by mouth once a week Vitamin D (Ergocalciferol) [facility][NOTE 3] 81331530485 70778 UNIT Orally t wice a week July 18, 2018 Active 1 capsule Pantoprazole Sodium [facility][NOTE 3] 30620637309 40 mg by mouth bid Active 1 tablet Vital Signs Date/Time: Apr 19, 2018 Weight 209 lbs Height 66 in Temperature 98.1 F Cardiac Monitoring Heart Rate 71 /min BMI 33.73 Index Results No Known Results Summary Purpose eClinicalWorks Submission
--- OUTSIDE RECORDS SUMMARY | 2019-08-14 10:57 | XMS REPORT ---
Author Author Jamal Schwartz Organization [employer] Address Unknown Phone Unavailable Care Team Providers Care Rhic Systems Safety Engineer Name Role Phone Lonny Schwartz Unavailable Allergies, Adverse Reactions, Alerts Substance Reaction Event Type N.K.D.A. Info Not Available Non Drug Allergy Encounters Encounter Location Date HEB did not receive Cough Med RX Lonny Schwartz MD [facility] Ap ril 2015 sprained wrist??? Lonny Schwartz MD [facility] September 04, 2015 Problems Problem Type Condition ICD-9 Code [...] 268.9 Active Problem B12 deficiency 266.2 Active Assessment Blunt trauma of rib S29.8XXA Active Problem Other B-complex deficiencies 266.2 July [...] Start Date End Date Status Dosage Tricor [facility] [address]-23 145 MG by mouth daily Act felicia 1 tablet Niacin Flush Free [facility] [address]96-45467 500 mg Orally every night Ap ril 2014 Active 1 capsule Meloxicam [facility] [address]-32 15 MG Orally Once a day September 04, 2015 October 04, 2015 Active 1 tablet Tramadol HCl [facility] [address]-93 50 mg Orally qd-bid Active 1 tablet as needed Tramadol HCl [facility] [address]-84 50 mg Orally thr ee times a day (tid) as needed (prn) pain September 04, 2015 October 04, 2015 Active 1 tablet ProAir HFA [facility] [address]-83 108 (90 Base) MC G/ACT by mouth three times a day (tid) as needed (prn) Mar 04, 2014 Mar 18, 2014 Active 2 puff s as needed Dicyclomine HCl [facility] [address]-31 20 mg Orally prn June Active 1 tablet Pantoprazole S[facility] [address]-63 40 mg by mouth daily Active 1 tablet Meloxicam [facility] [address]-30 7.5 MG Orally twice a day (bid) A pril 2015August 08, 2015 Active 1 tablet Guaifenesin-Codeine [facility] [address]-61 100-10 MG/5ML Orally every 6 hrs prn July 25, 2015 August 01, 2015 Active 5 ml Lisinopril [facility] [address]-80 20 mg by mouth daily A ctive 1 tablet Sucralfate [facility] [address]-50 1 GM Orally Twice a day Active 1 tablet on an empty stomach MetFORMIN HCl ER (MOD) [facility] [address]-68 500 mg Orally Once a da y Active 3 tablets with evening meal Cyclobenzaprine HCl [facility] [address]-10 10 mg by mouth twice a day (bid) Nov 18, 2014 Active 1/2 to 1 tablet Citalopram Hydrobromide [facility] [address]-39 10 mg by mouth daily Active 1 tablet Social History Social History Element Qualifiers Date Reported Supplements . Do you use supplements Yes Omega3 Aug Tobacco Use: . Are you a: never smoker September 04, 2015 Caffeine intake? . Status: Yes, What type: coffee (1 serving per day) and soda (1 serving per day) September 04, 2015 Do you drink alcohol? . Status: Yes, Type: Beer, Frequency Regular Use, Quantity September 04, 2015 Family history Qualifier Description Comment Date Reported Maternal Grandmother Comment not available September 04, 2015 Paternal Grandmother Comment not available September 04, 2015 Siblings alive 2 brothers diabetes September 03 6 Maternal Grandfather Comment not available September 04, 2015 Children Comment not available September 03 Father alive Comment not available September 03 Paternal Grandfather Comment not available September 04, 2015 Mother alive Comment not available September 03 Other: Comment not available September 03 Vital Signs Date/Time: September 04, 2015 Weight 217.8 lbs Height 66 in Temperature 97.8 F Cardiac Monitoring Heart Rate 71 /min Summary Purpose eClinicalWorks Submission
--- OUTSIDE RECORDS SUMMARY | 2019-08-14 10:57 | XMS REPORT ---
Author Author Jamal Vasquez Organization [employer] Address Unknown Phone Unavailable Care Team Providers Care Senior Quantity Surveyor Name Role Phone Kiesha Vasquez Unavailable Allergies, Adverse Reactions, Alerts Substance Reaction Event Type N.K.D.A. Info Not Available Non Drug Allergy Encounters Encounter Location Date HEB did not receive Cough Med RX Lonny Schwartz MD [facility] Ap 2015 sprained wrist??? Lonny Schwartz MD [facility] September 04, 2015 Sore Throat and cough Lonny Schwartz MD [facility] July 24 6 Problems Problem Type Condition [...] Active Problem B12 deficiency 266.2 Active Assessment Nasopharyngitis J00 Active Assessment Cough R05 Active Problem Other B-complex deficiencies 266.2 July 07 Active Problem Unspecified vitamin D deficiency 268.9 [...] Instructions Start Date End Date Status Dosage Azithromycin [facility] [address]-86 250 MG Orally Once a day July 25, 2015 July 30, 2015 Active 2 tablets on the first day, then 1 tablet daily for 4 days Meloxicam [facility] [address]-10 7.5 MG Orally twice a day (bid) A pril 2015 Active 1 tablet Vitamin D (Ergocalciferol) [facility] [address]-32 86797 UNIT Orally once per week May 07, 2015 August 05, 2015 Active 1 capsule Dicyclomine HCl [facility] [address]-43 20 mg Orally prn Active 1 tablet Lisinopril [facility] [address]-04 20 mg by mouth daily A ctive 1 tablet Tramadol HCl [facility] [address]-44 50 mg Orally qd-bid October 07, 2015 Active 1 tablet as needed Tricor [facility] [address]-75 145 MG by mouth daily Act felicia 1 tablet Citalopram Hydrobromide [facility] [address]-80 10 mg by mouth daily Active 1 tablet ProAir HFA [facility] [address]-19 108 (90 Base) MC G/ACT by mouth three times a day (tid) as needed (prn) Mar 04, 2014 Active 2 puff s as needed MetFORMIN HCl ER (MOD) [facility] [address]-39 500 mg Orally Once a da y Active 3 tablets with evening meal Guaifenesin-Codeine [facility] [address]-35 100-10 MG/5ML Orally every 6 hrs prn July 25, 2015 Active 5 ml Cyclobenzaprine HCl [facility] [address]-62 10 mg by mouth twice a day (bid) Nov 18, 2014 Active 1/2 to 1 tablet Codeine-Guaifenesin [facility] [address]-89 10-300 MG/5ML Orally every 6 hrs July 25, 2015 July 25, 2015 Inactive 5 ml as needed Sucralfate [facility] [address]-34 1 GM Orally Twice a day Active 1 tablet on an empty stomach Pantoprazole Sodium [facility] [address]-65 40 mg by mouth daily Active 1 tablet Niacin Flush Free [facility] 03[address]75 500 mg Orally every night Ap 2014 Active 1 capsule Social History Social History Element Qualifiers Date [...] not available September 03 Vital Signs Date/Time: July 25, 2015 Weight 212 lbs Height 66 in Temperature 99.4 F Cardiac Monitoring Heart Rate 83 /min Immunizations Vaccine Administration Date Ceftriaxone 500 mg July 25, 2015 Inj. Dexamethasone Sod Phos 1mg July 25, 2015 Summary Purpose eClinicalWorks Submission
--- OUTSIDE RECORDS SUMMARY | 2019-08-14 10:57 | XMS REPORT ---
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
--- OUTSIDE RECORDS SUMMARY | 2019-08-14 10:57 | XMS REPORT ---
Author Author Jamal Schwartz Organization [employer] Address Unknown Phone Unavailable Care Team Providers Care Insurance Account Executive Name Role Phone Lonny Schwartz CP Unavailable [...] acute 466.0 Nov 27, 2008 Active Assessment Lumbago with sciatica, left side M54.42 Active Problem Lumbar pain 724.2 August 07, [...] 2010 Active Problem Essential hypertension, benign 401.1 Oct 18, 20 07 Active Problem Allergic pharyngitis 462 Feb [...] Date End Date Status Dosage Tramadol HCl [facility] 88811233704 50 mg Orally qd-bid Act felicia 1 tablet as needed Results No Known Results Summary Purpose eClinicalWorks Submission
--- OUTSIDE RECORDS SUMMARY | 2019-08-14 10:57 | XMS REPORT ---
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
--- OUTSIDE RECORDS SUMMARY | 2019-08-14 10:57 | XMS REPORT ---
Author Author Jamal Vasquez Organization [employer] Address Unknown Phone Unavailable Care Team Providers Care Curriculum Writer Name Role Phone Kiesha Vasquez Unavailable Encounters Encounter Location Date Other Lonny Schwartz MD [facility] October 09, 2015 Other Lonny Schwartz MD [facility] October 10, 2015 HEB did not receive Cough Med RX Lonny Schwartz MD [facility] Ap 2015 sprained wrist??? Lnony Schwartz MD [facility] September 04, 2015 Sore Throat and cough Lonny Schwartz MD [facility] July 24 6 Problems Problem Type [...] . Do you use supplements Yes Omega3 Sep Tobacco Use: . Are you a: never smoker October 10, 2015 Caffeine intake? . Status: Yes, What type: coffee (1 serving per day) and soda (1 serving per day) October 10, 2015 Do you drink alcohol? . Status: Yes, Type: Beer, Frequency Regular Use, Quantity 12 October 10, 2015 Summary Purpose eClinicalWorks Submission
--- OUTSIDE RECORDS SUMMARY | 2019-08-14 10:58 | XMS REPORT ---
Author Author Jamal Vasquez Organization [employer] Address Unknown Phone Unavailable Care Team Providers Care Inverter And Clipper Name Role Phone Kiesha Vasquez Unavailable Allergies, Adverse Reactions, Alerts Substance Reaction Event Type N.K.D.A. Info Not Available Non Drug Allergy Encounters Encounter Location Date Other Lonny Schwartz MD [facility] October 09, 2015 Other Lonny Schwartz MD [facility] October 10, 2015 Cold Lonny Schwartz MD [facility] Dec 22, 2015 HEB did not receive Cough Med RX Lonny Schwartz MD [facility] Ap 2015 sprained wrist??? Lonny Schwartz MD [facility] September 04, 2015 Sore Throat and cough Lonny Schwartz MD [facility] July 24 6 Problems Problem Type Condition [...] Active Problem B12 deficiency 266.2 Active Assessment Sinusitis, acute maxillary J01.00 A ctive Assessment Cough R05 Active Problem Other B-complex [...] Instructions Start Date End Date Status Dosage Cefdinir [facility] [address]-44 300 MG Orally daily Dec 22, 2015 Oc t 2015 Active 2 capsules Citalopram Hydrobromide [facility] [address]-66 10 mg by mouth daily Active 1 tablet Lisinopril [facility] [address]-79 40 mg Orally Once a day October 09 Active 1 tablet Vitamin D (Ergocalciferol) [facility] [address]-03 46391 UNIT Orally once per week May 07, 2015 Active 1 capsule Pantoprazole Sodium [facility] [address]-56 40 mg by mouth daily Active 1 tablet Guaifenesin-Codeine [facility] [address]-44 100-10 MG/5ML Orally every 6 hrs Dec 22, 2015 Active 5-10 mls Meloxicam [facility] [address]-26 15 MG Orally once a day Active 1 tablet Tramadol HCl [facility] [address]-00 50 mg Orally qd-bid Active 1 tablet as needed MetFORMIN HCl ER (MOD) [facility] [address]-83 1000 mg O rally twice a day with meals October 10, 2015 Active 1 tablet Tricor [facility] [address]-13 145 MG by mouth daily Act felicia 1 tablet Social History Social History Element Qualifiers Date Reported Supplements . Do you use supplements Yes Omega3 Nov Tobacco Use: . Are you a: never smoker Dec 22, 2015 Caffeine intake? . Status: Yes, What type: coffee (1 serving per day) and soda (1 serving per day) Dec 22, 2015 Do you drink alcohol? . Status: Yes, Type: Beer, Frequency Regular Use, Quantity 12 Dec 22, 2015 Family history Qualifier Description Comment Date Reported Maternal Grandmother Comment not available Dec 22, 2015 Paternal Grandmother Comment not available Dec 22, 2015 Siblings alive 2 brothers diabetes Dec 21 6 Maternal Grandfather Comment not available Dec 22, 2015 Children Comment not available Dec 21 Father alive Comment not available Dec 21 Paternal Grandfather Comment not available Dec 22, 2015 Mother alive Comment not available Dec 21 Other: Comment not available Dec 21 Vital Signs Date/Time: Dec 22, 2015 Weight 218 lbs Height 66 in Temperature 98.8 F Cardiac Monitoring Heart Rate 76 /min Immunizations Vaccine Administration Date Ancef 500mg (Cefazolin) Dec 22, 2015 Inj. Dexamethasone Sod Phos 1mg Dec 22, 2015 Summary Purpose eClinicalWorks Submission
--- OUTSIDE RECORDS SUMMARY | 2019-08-14 10:58 | XMS REPORT ---
Author Author Jamal Vasquez Organization [employer] Address Unknown Phone Unavailable Care Team Providers Care Semiconductor Packages Platemaker Name Role Phone Kiesha Vasquez Unavailable Allergies, Adverse Reactions, Alerts Substance Reaction Event Type N.K.D.A. 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 October 04 008 Active Problem Diarrhea 787.91 October 05, 2007 Active Problem Lumbar pain [...] reflux 530.81 Jan 12, 2007 Act felicia Assessment Lumbago with sciatica, left side M54.42 Active Assessment Vitamin D deficiency E55.9 Active Assessment Other chronic pain G89.29 Active Problem B12 deficiency 266.2 Active Problem Vitamin D deficiency 268.9 Active Problem Essential hypertension, benign 401.1 Jan 12 07 Active Problem Lumbosacral spondylosis 721.3 Acti ve Problem Disorder of lipid metabolism 272.9 Active Problem 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 Active Problem Mixed hyperlipidemia 272.2 Active Problem Generalized anxiety disorder 300.02 Active Problem Esophageal reflux 530.81 Active Problem Low back pain 724.2 Active Problem History of colonic polyps V12.72 Ac tive Assessment Essential hypertension I10 Activ e Assessment Mixed hyperlipidemia E78.2 Active Assessment Type 2 diabetes mellitus wit hout complication, without long-term current use of insulin E11.9 Active Assessment Multilevel foraminal stenosis M48.00 Active Problem ANDREZ (generalized anxiety disorder) 300.02 Nov 272011 Active Problem Acute frontal sinusitis 461.1 Dec 29, 2011 Acti ve Problem Other B-complex deficiencies 266.2 July 07 13 Active Problem Hyperglycemia (Other abnormal blood chemistry) 790.6 Mar 30, 2013 Active Problem Other malaise and fatigue 780.79 May 31, 2012 Active Problem Unspecified vitamin D deficiency 268.9 June Active Problem Nasopharyngitis acute 460 May 31, 2011 Acti ve Problem Allergic pharyngitis 462 Feb 03, 2011 Active Problem Lumbar disc herniation with radiculopathy 722.10 Nov 04, 2010 Active Problem Degenerative arthritis of lumbar spine 721.3 Au g 2010 Active Problem Malaise and fatigue 780.79 Active Problem Mixed hyperlipidemia 272.2 Dec 17, 2011 Active Problem Essential hypertension, benign 401.1 Active Problem Atrophic gastritis 535.10 Active Problem Type 2 diabetes mellitus 250.00 Act felicia Problem Mahmood's esophagus 530.85 Active Problem Type 2 diabetes mellitus wit hout complication, without long-term current use of insulin E11.9 Active Problem Vitamin D deficiency E55.9 Active Problem Essential hypertension I10 Activ e Problem Unspecified disorder of lipoid metabolism 272.9 Mar 10, 2010 Active Problem Acquired absence of kidney Z90.5 A ctive Problem Right ear pain 388.70 June 10, 2010 Active Problem Essential hypertension 401.9 Activ e Problem Personal history of colonic polyps V12.72 July Active Problem Lumbago with sciatica, left side M54.42 Active Problem Mahmood's esophagus 530.85 August 12, 2010 Active Problem Other chronic pain G89.29 Active Problem Atrophic gastritis 535.1 August 12, 2010 Active Problem Acute maxillary sinusitis 461.0 Nov 27, 2008 A ctive Problem Bronchitis, acute 466.0 Nov 27, 2008 Active Problem Cough 786.2 May 26, 2009 Active Problem Nonspecific abnormal results of liver function study 7 94.8 Mar 06, 2009 Active Problem Costochondritis 733.6 Feb 13, 2010 Active Problem Fever and other physiologic disturbances of temperature regulation 780.6 May 26, 2009 Active Medications Medication Code System Code Instructions Start Date End Date Status Dosage Lisinopril [facility] [address]-86 40 mg Orally Once a day Active 1 tablet Hydrochlorothiazide [facility] [address]-95 25 MG Orally qam Jan 07, 2016 Active 1/2 to 1 tablet Pantoprazole Sodium [facility] [address]-13 40 mg by mouth daily Active 1 tablet Tramadol HCl [facility] [address]-04 50 mg Orally qd-bid A ctive 1 tablet as needed Meloxicam [facility] [address]-68 15 MG Orally once a day Active 1 tablet MetFORMIN HCl ER [facility] [address]-17 500 MG Orally twice a day ( bid) Jan 07, 2016 Active 2 tablets with food Tricor [facility] [address]-46 145 MG by mouth daily Acti ve 1 tablet Citalopram Hydrobromide [facility] [address]-26 10 mg by mouth daily Active 1 tablet Vitamin D (Ergocalciferol) [facility] [address]-50 82930 UNIT Orally once per week Active 1 capsule Vital Signs Date/Time: Apr 14, 2016 Weight 215 lbs Height 66 in Temperature 98.2 F Cardiac Monitoring Heart Rate 68 /min BMI 34.70 Index Results No Known Results Summary Purpose [employer] Submission
--- OUTSIDE RECORDS SUMMARY | 2019-08-14 10:58 | XMS REPORT ---
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 Active [...] chemistry) 790.6 Mar 30, 2013 Active Assessment Essential hypertension I10 Activ e Assessment Mixed hyperlipidemia E78.2 Active Assessment Type 2 diabetes mellitus wit hout complication, without long-term current use of insulin E11.9 Active Problem Mixed hyperlipidemia 272.2 Dec 17, [...] Start Date End Date Status Dosage Fenofibrate [facility] [address]-65 160 MG Orally Once a day July 16 7 Active 1 tablet with a meal Lisinopril [facility] [address]-30 40 mg Orally Once a day Active 1 tablet Citalopram Hydrobromide [facility] [address]-62 10 mg by mouth daily Active 1 tablet MetFORMIN HCl ER [facility] [address]-69 500 MG Orally twice a day (bid) Active 2 tablets with food Vitamin D (Ergocalciferol) [facility] [address]-49 36919 UNIT Orally once per week Active 1 capsule Meloxicam [facility] [address]-02 15 MG Orally once a day Active 1 tablet Hydrochlorothiazide [facility] [address]-50 25 MG Orally qam Jan 07, 2016 Active 1/2 to 1 tablet Pantoprazole Sodium [facility] [address]-25 40 mg by mouth daily Active 1 tablet Doxazosin Mesylate [facility] [address]-43 1 MG Orally Once a day Apri 2016 Active 1 tablet Tricor [facility] [address]-01 145 MG by mouth daily Acti ve 1 tablet Tramadol HCl [facility] [address]-91 50 mg Orally qd-bid A ctive 1 tablet as needed Vital Signs Date/Time: July 16, 2016 Weight 212 lbs Height 66 in Temperature 98.1 F Cardiac Monitoring Heart Rate 69 /min BMI 34.21 Index Results No Known Results Summary Purpose [employer] Submission
--- OUTSIDE RECORDS SUMMARY | 2019-08-14 10:58 | XMS REPORT ---
Author Author Jamal Vasquez Organization [employer] Address Unknown Phone Unavailable Care Team Providers Care Outside Sales Manager Name Role Phone Kiesha Vasquez Unavailable Allergies, Adverse Reactions, Alerts Substance Reaction Event Type N.K.D.A. Info Not Available Non Drug Allergy Encounters Encounter Location Date Other Lonny Schwartz MD [facility] October 09, 2015 Other Lonny Schwartz MD [facility] October 10, 2015 Cold Lonny Schwartz MD [facility] Dec 22, 2015 follow up labs Lonny Schwartz MD [facility] October 10, 2015 HEB did not receive Cough Med RX Lonny Schwartz MD [facility] Ap 2015 sprained wrist??? Lonny Schwartz MD [facility] September 04, 2015 Sore Throat and cough Lonny Schwartz MD [facility] July 24, 201 6 follow up MRI Lonny Schwartz MD [facility] Nov 14, 2015 Medication Refil, follow up labs Lonny Schwartz MD [facility] Oc t 2015 Problems Problem Type Condition ICD-9 Code [...] Active Problem B12 deficiency 266.2 Active Assessment Type 2 diabetes mellitus E11.9 Act felicia Assessment Vitamin D deficiency E55.9 Active Assessment Benign essential hypertension I10 Active Assessment Mixed hyperlipidemia E78.2 Active Assessment ANDREZ (generalized anxiety disorder) F41.1 Active Problem Other B-complex deficiencies 266.2 July [...] Instructions Start Date End Date Status Dosage Adult Blood Pressure Cuff Lg [facility] [address]92768 --- check daily Jan 07, 2016 Active as directed Pantoprazole Sodium [facility] [address]-72 40 mg by mouth daily Active 1 tablet Vitamin D (Ergocalciferol) [facility] [address]-00 06180 UNIT Orally once per week Active 1 capsule Meloxicam [facility] [address]-07 15 MG Orally once a day Active 1 tablet Lisinopril [facility] [address]-84 40 mg Orally Once a day Active 1 tablet MetFORMIN HCl ER [facility] [address]-63 500 MG Orally twice a d ay (bid) Jan 07, 2016 Active 2 tablets with food Hydrochlorothiazide [facility] [address]-03 25 MG Orally qam Jan 06 016 Active 1/2 to 1 tablet Tricor [facility] [address]-60 145 MG by mouth daily Act felicia 1 tablet Citalopram Hydrobromide [facility] [address]-62 10 mg by mouth daily Active 1 tablet Tramadol HCl [facility] [address]-57 50 mg Orally qd-bid Active 1 tablet as needed MetFORMIN HCl ER (MOD) [facility] [address]-91 1000 mg O rally twice a day with meals October 10, 2015 Inactive 2 tablets Potassium Chloride ER [facility] [address]-24 10 MEQ Orally Once a day Jan 07, 2016 Feb 06, 2016 Active 1 tablet with food Social History Social History Element Qualifiers Date Reported Supplements . Do you use supplements Yes Omega3 Jan 07, 2016 Tobacco Use: . Are you a: never smoker Jan 07, 2016 Caffeine intake? . Status: Yes, What type: coffee (1 serving per day) and soda (1 serving per day) Jan 07, 2016 Do you drink alcohol? . Status: Yes, Type: Beer, Frequency Regular Use, Quantity Jan 07, 2016 Family history Qualifier Description Comment Date Reported Maternal Grandmother Comment not available Dec 262015 Paternal Grandmother Comment not available Dec 262015 Siblings alive 2 brothers diabetes Jan 07, 2016 Maternal Grandfather Comment not available Dec 262015 Children Comment not available Jan 06 16 Father alive Comment not available Jan 06 16 Paternal Grandfather Comment not available Dec 262015 Mother alive Comment not available Jan 06 Other: Comment not available Jan 06 Vital Signs Date/Time: Jan 07, 2016 Weight 214 lbs Height 66 in Temperature 98.7 F Cardiac Monitoring Heart Rate 88 /min Immunizations Vaccine Administration Date FLUVIRIN - Influenza (split) Jan 07, 2016 FLUVIRIN - Influenza (split) Jan 07, 2016 FLUVIRIN - Influenza (split) Jan 07, 2016 Summary Purpose eClinicalWorks Submission
--- OUTSIDE RECORDS SUMMARY | 2019-08-14 10:58 | XMS REPORT ---
Author Author Jamal Vasquez Organization [employer] Address Unknown Phone Unavailable Care Team Providers Care Ham Doctor Name Role Phone Kiesha Vasquez Unavailable Allergies, Adverse Reactions, Alerts Substance Reaction Event Type N.K.D.A. Info Not Available Non Drug Allergy Encounters Encounter Location Date Other Lonny Schwartz MD [facility] October 09, 2015 Other Lonny Schwartz MD [facility] October 10, 2015 Cold Lonny Schwartz MD [facility] Dec 22, 2015 follow up labs Lonny Schwartz MD [facility] October 10, 2015 HEB did not receive Cough Med RX Lonny Schwartz MD [facility] Ap 2015 sprained wrist??? Lonny Schwartz MD [facility] September 04, 2015 Sore Throat and cough Lonny Schwartz MD [facility] July 24, 201 6 follow up MRI Lonny Schwartz MD [facility] Nov 14, 2015 Problems Problem Type Condition ICD-9 Code [...] Active Problem B12 deficiency 266.2 Active Assessment Multilevel foraminal stenosis M48.00 Active Assessment Low back pain M54.5 Active Assessment Radiculopathy of lumbosacral region M54.17 Active Assessment Hypertension I10 Active Problem Other B-complex deficiencies 266.2 July [...] 300.02 Active Problem History of colonic polyps V1. Ac tive Problem Type 2 diabetes mellitus [...] End Date Status Dosage MetFORMIN HCl ER (MOD) [facility] [address]-95 1000 mg O rally twice a day with meals October 10, 2015 Active 1 tablet Meloxicam [facility] [address]-72 15 MG Orally once a day Active 1 tablet Pantoprazole Sodium [facility] [address]-41 40 mg by mouth daily Active 1 tablet Tricor [facility] [address]-34 145 MG by mouth daily Act felicia 1 tablet Vitamin D (Ergocalciferol) [facility] [address]-20 33692 UNIT Orally once per week May 07, 2015 Active 1 capsule Citalopram Hydrobromide [facility] [address]-14 10 mg by mouth daily Active 1 tablet Lisinopril [facility] [address]-13 40 mg Orally Once a day October 09 Active 1 tablet Tramadol HCl [facility] [address]-67 50 mg Orally qd-bid Active 1 tablet as needed Social History Social History Element Qualifiers Date [...] 262015 Children Comment not available Jan 06 Father alive Comment not available Jan 06 Paternal Grandfather Comment not available Dec 262015 Mother alive Comment not available Jan 06 Other: Comment not available Jan 06 Vital Signs Date/Time: Nov 14, 2015 Weight 217 lbs Height 66 in Temperature 98.9 F Cardiac Monitoring Heart Rate 77 /min Summary Purpose [employer]ClinicalWorks Submission
--- OUTSIDE RECORDS SUMMARY | 2019-08-14 10:58 | XMS REPORT ---
Author Author Jamal Vasquez Organization [employer] Address Unknown Phone Unavailable Care Team Providers Care Robotic Technician Name Role Phone Kiesha Vasquez Unavailable Encounters [...] Lonny Schwartz MD [facility] July 24, 6 Other Lonny Schwartz MD [facility] Feb 09, 2016 follow up MRI Lonny Schwartz MD [facility] Nov 14, 2015 Medication Refil, follow up labs Lonny Schwartz MD [facility] Oc 2015 Problems Problem Type Condition ICD-9 Code [...] Active Problem B12 deficiency 266.2 Active Assessment Low back pain M54.5 Active Problem Other B-complex deficiencies 266.2 July [...] Date End Date Status Dosage Tramadol HCl [facility] [address]-22 50 mg Orally daily June 29, 2015 Active 1 tablet as needed Social History [...] Frequency Regular Use, Quantity Jan 07, 2016 Summary Purpose [employer]ClinicalWorks Submission
--- OUTSIDE RECORDS SUMMARY | 2019-08-14 10:58 | XMS REPORT ---
Author Author Jamal Schwartz [facility] [employer] Address Unknown Phone Unavailable Care Team Providers Care Master Black Belt Name Role Phone Lonny Schwartz CP Unavailable Encounters Encounter Location Date Other Lonny Schwartz MD [facility] October 09, 2015 Nando Schwartz MD [facility] October 10, 2015 Cold Lonny Schwartz MD [facility] Dec 22, 2015 follow up labs Lonny Schwartz MD [facility] October 10, 2015 HEB did not receive Cough Med RX Lonny Schwartz MD [facility] Ap 2015 Nando Schwartz MD [facility] May 10, 2016 sprained wrist??? Lonny Schwartz MD [facility] September 04, 2015 Sore Throat and cough Lonny Schwartz MD [facility] July 24, 201 6 Other Lonny Schwartz MD [facility] Feb 09, 2016 follow up MRI Lonny Schwartz MD [facility] Nov 14, 2015 Medication Refil, follow up labs Lonny Schwartz MD [facility] Oc t 2015 Problems Problem Type Condition [...] 530.81 Jan 12, 2007 Act felicia Problem B12 deficiency 266.2 Active Problem Vitamin [...] of colonic polyps V12.72 Ac tive Problem ANDREZ (generalized anxiety disorder) 300.02 Nov [...] lumbar spine 721.3 Au 2010 Active Problem Malaise and fatigue 780.79 [...] temperature regulation 780.6 May 26, 2009 Active Social History Social History Element Qualifiers [...] Type: Beer, Frequency Regular Use, Quantity 12 Apr 14, 2016 Summary Purpose eClinicalWorks Submission
--- OUTSIDE RECORDS SUMMARY | 2019-08-14 10:58 | XMS REPORT ---
Author Author Jamal Vasquez Organization [employer] Address Unknown Phone Unavailable Care Team Providers Care Vocational Technical Education Director Name Role Phone Kiesha Vasquez Unavailable Allergies [...] regulation 780.6 May 26, 2009 Active Medications No Known Medications Results No Known Results Summary Purpose [employer]Works Submission
--- OUTSIDE RECORDS SUMMARY | 2019-08-14 10:58 | XMS REPORT ---
Author Author Jamal Vasquez Organization [employer] Address Unknown Phone Unavailable Care Team Providers Care Audio Production Engineer Name Role Phone Kiesha Vasquez Unavailable Allergies, Adverse Reactions, Alerts Substance Reaction Event Type N.K.D.A. Info Not Available Non Drug Allergy Encounters Encounter Location Date Other Lonny Schwartz MD [facility] October 09, 2015 Other Lonny Schwartz MD [facility] October 10, 2015 Cold Lonny Schwartz MD [facility] Dec 22, 2015 follow up labs Lonny Schwartz MD [facility] October 10, 2015 HEB did not receive Cough Med RX Lonny Schwartz MD [facility] Ap 2015 sprained wrist??? Lonny Schwartz MD [facility] September 04, 2015 Sore Throat and cough Lonny Schwartz MD [facility] July 24 6 Problems Problem Type Condition [...] Active Problem B12 deficiency 266.2 Active Assessment Left-sided low back pain with sciatica M54.42 Active Assessment Obesity E66.9 Active Assessment Type 2 diabetes mellitus E11.9 Act felicia Assessment Vitamin D deficiency E55.9 Active Assessment Benign essential hypertension I10 Active Assessment Low back pain M54.5 Active Assessment Mixed hyperlipidemia E78.2 Active Assessment [...] Instructions Start Date End Date Status Dosage Meloxicam [facility] [address]-87 15 MG Orally once a day Active 1 tablet Lisinopril [facility] [address]-61 40 mg Orally Once a day October 09 16 Active 1 tablet Tramadol HCl [facility] [address]-64 50 mg Orally qd-bid Active 1 tablet as needed Tricor [facility] [address]-59 145 MG by mouth daily Act felicia 1 tablet Pantoprazole Sodium [facility] [address]-72 40 mg by mouth daily Active 1 tablet Lisinopril [facility] [address]-74 20 mg by mouth daily I nactive 1 tablet MetFORMIN HCl ER (MOD) [facility] [address]-81 500 mg Orally Once a da y Inactive 3 tablets with evening meal MetFORMIN HCl ER (MOD) [facility] [address]-80 1000 mg O rally twice a day with meals October 10, 2015 Active 1 tablet Citalopram Hydrobromide [facility] [address]-99 10 mg by mouth daily Active 1 tablet Vitamin D (Ergocalciferol) [facility] [address]-98 02886 UNIT Orally once per week May 07, 2015 Active 1 capsule Social History Social History [...] Regular Use, Quantity 12 Dec 22, 2015 Vital Signs Date/Time: October 10, 2015 Weight 217 lbs Height 66 in Temperature 98.3 F Cardiac Monitoring Heart Rate 58 /min Summary Purpose eClinicalWorks Submission
[2019-08-14 12:30] VITALS: BP 131/82
== END | disposition home or self-care (01) ==
LOC: OR 10:45
PROVIDERS: ATTEND Ophthalmology
DX: H25.12 Age-related nuclear cataract, left eye (principal); E11.9 Type 2 diabetes mellitus without complications; I10 Essential (primary) hypertension; K21.9 Gastro-esophageal reflux disease without esophagitis; E78.2 Mixed hyperlipidemia; Z01.812 Encounter for preprocedural laboratory examination; Z11.59 Encounter for screening for other viral diseases; Z79.84 Long term (current) use of oral hypoglycemic drugs; Z85.46 Personal history of malignant neoplasm of prostate
CPT/HCPCS: 36415; 66984; 82948; 87635; J2250; J3010